=== PATIENT | male | born 1965 | race Caucasian/White ===

== ENCOUNTER 2016-06-18 08:55 | Inpatient (IN) | payer OTHER ==
[~2016-06-18] VITALS: Ht 175.3 cm; Wt 132.4 kg
[~2016-06-18 08:55] MED LIST: ADVIL PM1 CAP PO; ALBUTEROL HFA60 DOSE IN; ALEVE220 MG PO; ASPIRIN EC LOW81 MG PO; CARDIZEM C2 PO; MS CONTIN30 MG PO; O2 IN; OXAYDO5 MG PO; PRILOSEC20 MG PO; ZESTRIL10 MG PO
--- NOTE | 2016-06-18 11:21 | ED ORDER SUMMARY ---
..... Patient: VIRGIL BROCK OrderSheet [facility] VisitID: [id number] [place] [address] 50y, M Registration Date/Time: 06/18/2016 ORDER SHEET Weight: 131.5 kg (stated) Allergies: None GENERAL ORDERS: EKG - ER Stat (09:08 06/18/2016 Librado R.NSherif per protocol) (9:12 LTapper) Chest 2V Urgent (:06/18/2016 Bhaarthi BAKER) (Ack 9:31 LTapper) (10:37 MWinterer R.N.) Last Repairer (Continuous) (:06/18/2016 Bharathi BAKER) (9:31 SReiglesia R.N.) Cardiac Panel Stat (:06/18/2016 Bharathi BAKER) (Ack 9:31 LTapper) (9:32 LTapper) BNP Urgent (:06/18/2016 Bharathi BAKER) (Ack 9:31 LTapper) (9:32 LTapper) UA-Culture if indicated Urgent (:06/18/2016 Bharathi BAKER) (Ack 9:31 LTapper) (10:37 MWinterer R.N.) TSH Urgent (:06/18/2016 Bharathi BAKER) (Ack 9:31 LTapper) (9:32 LTapper) Oxygen (2 L/min) (NC) (:06/18/2016 Bharathi BAKER) (9:31 Librado R.N.) Pulse oximeter (:06/18/2016 Bharathi BAKER) (9:31 Librado R.N.) Old Records (Abdullahi within the lat year for CHF and cardiac work up.) (10:44 06/18/2016 Bharathi BAKER) (Ack 12:00 LTapper) (12:00 LTapper) MEDICATION ORDERS: Aspirin PO 325 mg (NOW) (09:29 06/18/2016 Bharathi BAKER) (Cancelled: Other9:32 Bharathi BAKER) Oxycodone-APAP PO 10/650 mg (NOW) (11:54 06/18/2016 Bharathi BAKER) (Ack 12:02 oberts R.N.) (12:06 Patrizia R.N.) IV FLUIDS: IV Saline Lock (09:29 06/18/2016 Bharathi BAKER) (Ack 9:33 SReitz R.N.) Lasix IV 40 mg (NOW) (10:48 06/18/2016 Bharathi BAKER) (Ack 11:20 SRoberts R.N.) (11:27 SRoberts R.N.) ORDER SHEET NOTES: [Electronically signed by Kamila Rendon R.N. (13:19 06/18/2016)] [Electronically signed by Eulogio White MD (16:20 06/18/2016)] [Electronically locked/signed by Kamila Rendon R.N. (13:19 06/18/2016)]
--- NOTE | 2016-06-18 11:21 | ED NURSING NOTES ---
Clinical Report - Nurses [facility] [address] [place] [address] 06/18/2016 8:57 Patient: VIRGIL BROCK TRIAGE Triage time 0855. Acuity: LEVEL 3. Chief Complaint: CHEST PAIN and SHORTNESS OF BREATH. Alert. No acute distress. SEPSIS SCREEN: Sepsis Screen. Negative (no infection suspected/documented). RICKI COMA SCORE: [place] Coma Scale: 15- eyes open spontaneously (4); best verbal response- oriented x 4 (5); best motor response- obeys commands (6). --09:04 Shira Cason R.N. 09:00 06/18/16. BP: 150/96. HR: 72. RR: 20. O2 saturation: 93%. Temp: 99.1 F. Pain level now 10. --09:04 Shira Cason R.N. Weight: 131.5 kg stated. Height/Length: 69 inches Per Patient. BMI: 42.8. --09:02 Shira Cason R.N. Medications OxyCODONE HCl Oral 15mg, 3x a day (for Arthritis). Toprol XL Oral 50 mg, daily. Zestril Oral 10 mg, daily. --09:06 Shira Cason R.N. MS Contin Oral 15 mg, 2x a day. --09:06 Shira Cason R.N. Lamotrigine 200mg daily. --09:07 Shira Cason R.N. Allergies None. --13:16 Kamila Rendon R.N. The following entry was struck by Shira Cason R.N., 09:07 (06/18/16) Reason - other. <<STRICKEN ENTRY-- None. --09:03 Shira Cason R.N. --END STRIKE>>. History Arrived by private vehicle. Historian: patient. Accompanied by family. Primary physician (Christopher). This started today. 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 PAST MEDICAL HX: Immunizations: up-to-date. SOCIAL HX: Heavy tobacco smoker (cigarette)- less than 1 pack per day. No alcohol use or drug use. No infectious disease exposure. ABUSE ASSESSMENT: Abuse assessment: The patient was asked "Do you feel safe in your home?" and "Has anyone hurt you or threatened to hurt you?". No report of abuse. SELF HARM ASSESSMENT: A self harm assessment was performed. The patient answered "no" to the question "Do you have thoughts of harming or killing yourself?" and "Have you recently had thoughts about harming or killing others?". NUTRITIONAL RISK ASSESSMENT: The nutritional risk assessment revealed no deficiencies. FUNCTIONAL ASSESSMENT: Functional assessment: no impairments noted. LEARNING NEEDS ASSESSMENT: The learning needs assessment revealed no barriers. --09:04 Shira Cason R.N. PROBLEMS: Congestive Heart Failure. Rib Fracture. Crush injury . Contusion. Head Injury. Fall. Hyperlipidemia. Hypertension. Sprain. Pneumonia. --09:03 Shira Cason R.N. ADDITIONAL SURGERIES: Cholecystectomy. Shoulder Surgery. --09:04 Shira Cason R.N. Interventions ID band on patient. Ambulatory. --09:04 Shira Cason R.N. PHYSICAL ASSESSMENT 08:50. Ambulatory to room. GENERAL / NEURO / PSYCH: Alert. Appears in no acute distress. HEENT: Mucous membranes are pink. RESPIRATORY: Respirations not labored. CVS: Pulses within normal limits. Capillary refill less than 2 seconds. GI / : Abdomen soft and nontender. EXTREMITIES: No lower extremity edema. SKIN: Skin is warm and dry. Skin is non-tender. --09:04 Shira Cason R.N. NURSING PROGRESS NOTES 09:00. Oxygen administered by nasal cannula at 2 liters. quality assurance monitor, pulse oximeter and NIBP monitor placed on patient; child monitor- Lead II; monitor alarms on. Patient gowned. Head of bed elevated. Two patient identifiers checked. Call light placed in reach. Side rails up x 2. Bed placed in lowest position. Brakes of bed on. Patient ready for evaluation- chart flagged. --09:05 Shira Cason R.N. 09:00 06/18/2016 Site #1 started via IV in the right antecubital space with an 20g angiocath, with aseptic technique and good blood return; one attempt. Blood drawn: rainbow set. Labeled in the presence of the patient and sent to the lab. Saline lock flushed with 10 mL saline (accessed by EDWIN Dominguez). --09:05 Shira Cason R.N. EKG time: (902). EKG was ordered, performed by a tech and shown to the ED physician. --09:05 Shira Cason R.N. Care transferred and report given (to Kamila Galarza RN). --10:21 Shira Cason R.N. 10:25. Patient ID band checked for patient name and birthdate: patient confirmed. Instructions provided to collect clean catch urine and patient verbalized understanding urine collected with return of robbin-colored clear urine; odor is normal; sample sent to lab for urinalysis. Specimen labeled in the presence of the patient. --10:30 Linda Deborah 11:27 06/18/2016 Lasix IVP 40 mg given over 15 minute(s) via site #1. Allergies verified and confirmed 5 rights. IV patency established. IV site checked: no pain, redness, or swelling. IV flushed thoroughly pre- and post-medication administration. IVP given by RN. --11:27 Kamila Rendon R.N. 12:06 06/18/2016 Oxycodone-APAP (Oxycodone-Acetaminophen) PO 5/325 mg Tablets 2 tab given. Allergies verified, confirmed 5 rights and sedative warning given to the patient and patient's family. --12:06 Kamila Rendon R.N. 12:16 06/18/16. BP: 136/88. HR: 82. RR: 20. O2 saturation: 93% on room air. Pain level now: 12/18. 11:28 06/18/16. BP: 124/76. HR: 59. RR: 20. O2 saturation: 93% on room air. Pain level now: 08/17. 10:38 06/18/16. BP: 138/87. HR: 62. RR: 18. O2 saturation: 94% on room air. 09:00 06/18/16. BP: 150/96. HR: 72. RR: 20. O2 saturation: 93%. Temp: 99.1 F. Pain level now 07/18. --12:19 Kamila Rendon R.N. 12:40 06/18/2016 Site #[address] upon admission; patent, no pain and no signs of infection. Good blood return present. Flushed with 10 mL saline. --13:18 Kamila Rendon R.N. DISPOSITION / DISCHARGE Admitted to Acute Care. Transported via by [employer]. Report was given to a nurse via a phone call. Report included patient's care, treatment, medications, reviewed medication reconcilliation, and condition (including any recent changes or anticipated changes). All questions were answered. Report was acknowledged and care was transferred. Patient's personal items include, Belongings home with the family. Collection of belongings was witnessed by 1 nurse. --12:29 Kamila Rendon R.N. 12:16 06/18/16. BP: 136/88. HR: 82. RR: 20. O2 saturation: 93% on room air. Pain level now: 12/18. 11:28 06/18/16. BP: 124/76. HR: 59. RR: 20. O2 saturation: 93% on room air. Pain level now: 08/17. 10:38 06/18/16. BP: 138/87. HR: 62. RR: 18. O2 saturation: 94% on room air. 09:00 06/18/16. BP: 150/96. HR: 72. RR: 20. O2 saturation: 93%. Temp: 99.1 F. Pain level now 07/18. --12:29 Kamila Rendon R.N. Locked/Released at 06/18/2016 13:19 by Kamila Rendon R.N.
--- NOTE | 2016-06-18 11:21 | ED CLINICAL REPORT ---
Clinical Report - Physicians/Mid Levels [facility] [address] [place] [address] 06/18/2016 8:57 [id number] Time Seen: 09:10 Jun 18 2016. Arrived- By private vehicle. Historian- patient. CPT: ER phys charges level 5 plus (#864991). EKG interpretation (#[id number]). HISTORY OF PRESENT ILLNESS Chief Complaint: DYSPNEA and HISTORY OF CONGESTIVE HEART FAILURE. This started yesterday Dyspnea for 24 hours. and is still present and worsening. (worse. cannot walk 20 feet now without stopping.). The dyspnea is described as moderate and is worsened by exertion and being in a supine position, is improved by rest, is improved with oxygen and is improved with sitting upright. The patient has had a cough, chest discomfort, wheezing, dyspnea on exertion and orthopnea. No sputum production, fever, sweating episodes, chills or calf pain. No foot swelling. Similar symptoms previously: Recent medical care: Not recently seen/assessed. REVIEW OF SYSTEMS The patient has had joint pain (chronically), but not had weight loss. No eye irritation, sore throat, nasal discharge, sinus drainage or nausea. No vomiting, abdominal pain, diarrhea, black stools or fainting episodes. No difficulty with urination or skin rash. 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 Congestive Heart Failure. Rib Fracture. Crush injury . Contusion. Head Injury. Fall. Hyperlipidemia. Hypertension. Sprain. Pneumonia. ADDITIONAL SURGERIES: Cholecystectomy. Shoulder Surgery. Medications: Lamotrigine 200mg daily. MS Contin Oral 15 mg, 2x a day. OxyCODONE HCl Oral 15mg, 3x a day (for Arthritis). Toprol XL Oral 50 mg, daily. Zestril Oral 10 mg, daily. SOCIAL HISTORY Heavy tobacco smoker (cigarette)- less than 1 pack per day. No alcohol use or drug use. ADDITIONAL NOTES The nursing notes have been reviewed. PHYSICAL EXAM Vital Signs: 06/18/2016 09:00 BP: 150/96. HR: 72. RR: 20. O2 saturation: 93%. Temp: 99.1 F. Appearance: Alert. Patient in mild distress. Eyes: Pupils equal, round and reactive to light. Eyes normal inspection. ENT: Ears normal. Nose normal. Pharynx normal. Uvula midline. Neck: Normal inspection. No jugular venous distention. Neck supple. CVS: Normal heart rate and rhythm. Heart sounds normal. Pulses normal. No cardiac murmur. Respiratory: Mild respiratory distress. Moderate chest wall tenderness (Anterior and reproduces the pain complaint.). The tenderness is well-localized. Moderate rales present in the lower two-thirds of both lung kline. No wheezes. Abdomen: Soft and nontender. Back: Normal inspection. Skin: Skin warm. Normal skin color. No rash. Extremities: Extremities exhibit normal ROM. No lower extremity edema. Neuro: Oriented X 3. No motor deficit. No sensory deficit. Reflexes normal. LABS, X-RAYS, AND EKG EKG: Normal sinus rhythm. Normal P waves. Left atrial enlargement. Normal QRS complex. Q waves in lead V1 and V2. Normal axis. Normal ST and T waves. The study has been interpreted contemporaneously. The study has been independently viewed by me. The EKG appears to be a good tracing. Chest X-ray: Congestive heart failure present. Vascular congestion present. Cardiomegaly. Views: PA and lateral. Technique: good. The X-rays were independently viewed by me and interpreted contemporaneously by me. Laboratory Tests: UA-Culture if indicated: (ROBERT: 06/18/2016 10:25) ( MsgRcvd 06/18/2016 10:45) Final results Test Result Flag Units (Reference) URINE COLOR KYRIE URINE APPEARANCE CLEAR URINE GLUCOSE NEGATIVE (NEGATIVE) URINE BILIRUBIN NEGATIVE (NEGATIVE) URINE BILIRUBIN ICTOTEST NEGATIVE (NEGATIVE) URINE KETONE NEGATIVE (NEGATIVE) URINE SPECIFIC GRAVITY 1.015 (1.010-1.030) URINE PH 7.0 (5.0-8.0) URINE PROTEIN 2+ (NEGATIVE) URINE UROBILINOGEN 2.0 EU/dL (0.2-1.0) The urobilinogen reagent area may react with interferingsubstances known to react with Vane's reagent such asp-aminosalicylic acid and sulfonamides. Atypical colorreactions may be obtained in the presence of highconcentrations of p-aminobenzoic acid. The absence ofurobilinogen cannot be determined with this test. URINE NITRITE NEGATIVE (NEGATIVE) URINE BLOOD NEGATIVE (NEGATIVE) URINE LEUK ESTERASE NEGATIVE (NEGATIVE) URINE RBC NONE SEEN rbc/hpf (0-1) URINE WBC 3-5 wbc/hpf (0-1) URINE EPITHELIAL CELLS 1-3 EPI/hpf (0-5) URINE BACTERIA TRACE (<1+) (NONE SEEN) URINE COMMENT CULT NOT INDICATED URINE CULTURES ARE SET-UP BASED ON THE FOLLOWING CRITERIA:POSITIVE NITRITEPOSITIVE LEUKOCYTE ESTERASEGREATER THAN 10 WHITE BLOOD CELLSMODERATE (2+) OR GREATER BACTERIA CBC w Diff: (ROBERT: 06/18/2016 09:00) ( [facility] [place] 06/18/2016 09:39) Final results Test Result Flag Units (Reference) WHITE BLOOD COUNT 9.5 K/uL (4.5-11.5) RED BLOOD COUNT 4.96 M/uL (4.50-5.90) HEMOGLOBIN 15.1 gm/dL (13.5-17.5) HEMATOCRIT 44.9 % (41.0-53.0) MEAN CELL VOLUME 91 fL (80-100) MEAN CORPUSCULAR HGB 30 pg (26-34) MEAN CORPUSCULAR HGB CONC 34 g/dL (31-37) RED CELL DISTRIBUTION WIDTH 14.9 H % (11.6-14.8) PLATELET COUNT 160 K/uL (150-400) NEUTROPHIL % 76.8 H % (50-75) LYMPH % 14.9 L % (25-40) MONO % 6.7 % (3-14) EOSINOPHIL % 1.2 % (0-4) BASOPHIL % 0.4 % (0-2) BNP: (ROBERT: 06/18/2016 09:00) ( MsgRcvd 06/18/2016 09:58) Final results Test Result Flag Units (Reference) B-TYPE NATRIURETIC PEPTIDE 732 H pg/ml (5-100) CHEM 13 PANEL: (ROBERT: 06/18/2016 09:00) ( MsgRcvd 06/18/2016 09:57) Final results Test Result Flag Units (Reference) GLUCOSE 109 mg/dL (70-110) BUN 15 mg/dL (7-18) CREATININE 1.2 mg/dL (0.6-1.3) Estimated GFR >60 mL/min Estimated GFR- >60 mL/min Note: Persistent reduction over 3 months in eGFR<60 mL/min/1.73 m2 defines CKD. Patients with eGFR values>=60 mL/min/1.73 m2 may also have CKD if evidence ofpersistent proteinuria. Additional information may be foundat www.kidney.org. SODIUM 141 mmol/L (136-145) POTASSIUM 4.0 mmol/L (3.5-5.1) CHLORIDE 104 mmol/L (98-107) CARBON DIOXIDE 29 mmol/L (21-32) CALCIUM 9.1 mg/dL (8.5-10.1) TOTAL PROTEIN 7.3 g/dL (6.4-8.2) ALBUMIN 3.5 g/dL (3.3-5.0) BILIRUBIN, TOTAL 1.3 H mg/dL (0.0-1.0) ALKALINE PHOSPHATASE 123 H U/L (46-116) AST (SGOT) 41 H U/L (15-37) ALT (SGPT) 93 H U/L (12-78) MAGNESIUM 2.1 mg/dL (1.8-2.4) CPK 59 U/L (24-260) TROPONIN I <0.05 ng/mL (0.00-1.5) TROPONIN REFERENCE RANGE:<0.1 NEGATIVE0.1-1.5 INDETERMINANT>1.5 POSITIVE THYROID STIMULATING HORMONE 4.475 H uIU/mL (0.34-3.74) . PROGRESS AND PROCEDURES Course of Care: Pt had 325 mg ASA at home. Heplock Lasix 40 mg IV records reviewed from October 2014. Patient was admitted for CHF. A cardiology workup that includeda nuclear exercise treadmil,l an echocardiogram and a CTA of the chest. He was treated medically for CHF and discharged for follow-up. There is no mention of any kind of coronary artery disease. Discussed case with on-call health care provider, (Laila). Reviewed test results. Agreed upon treatment plan. Health care provider will see patient in hospital. Patient/family counseled. Old medical records ordered. Disposition orders written. Disposition: Admitted to Acute Care. CLINICAL IMPRESSION Acute moderate systolic, left ventricular congestive heart failure Acute dyspnea Borderline hypoxia on RA. Chest wall pain Elevated liver enzymes. (Electronically signed by Eulogio White MD 06/18/2016 16:20)
--- NOTE | 2016-06-18 11:21 | ED ORDER SUMMARY ---
..... Patient: VIRGIL BROCK OrderSheet [facility] VisitID: [id number] [place] [address] 50y, M Registration Date/Time: 06/18/2016 ORDER SHEET Weight: 131.5 kg (stated) Allergies: None GENERAL ORDERS: EKG - ER Stat (09:08 06/18/2016 Librado R.NSherif per protocol) (9:12 LTapper) Chest 2V Urgent (:06/18/2016 Bharathi BAKER) (Ack 9:31 LTapper) (10:37 MWinterer R.N.) Celery Stripper (Continuous) (:06/18/2016 Bharathi BAKER) (9:31 SReiglesia R.N.) Cardiac Panel Stat (:06/18/2016 Bharathi BAKER) (Ack 9:31 LTapper) (9:32 LTapper) BNP Urgent (:06/18/2016 Bharathi BAKER) (Ack 9:31 LTapper) (9:32 LTapper) UA-Culture if indicated Urgent (:06/18/2016 Bharathi BAKER) (Ack 9:31 LTapper) (10:37 MWinterer R.N.) TSH Urgent (:06/18/2016 Bharathi BAKER) (Ack 9:31 LTapper) (9:32 LTapper) Oxygen (2 L/min) (NC) (:06/18/2016 Bharathi BAKER) (9:31 Librado R.N.) Pulse oximeter (:06/18/2016 Bharathi BAKER) (9:31 Librado R.N.) Old Records (Abdullahi within the lat year for CHF and cardiac work up.) (10:44 06/18/2016 Bharathi BAKER) (Ack 12:00 LTapper) (12:00 LTapper) MEDICATION ORDERS: Aspirin PO 325 mg (NOW) (09:29 06/18/2016 Bharathi BAKER) (Cancelled: Other9:32 Bharathi BAKER) Oxycodone-APAP PO 10/650 mg (NOW) (11:54 06/18/2016 Bharathi BAKER) (Ack 12:02 oberts R.N.) (12:06 Patrizia R.N.) IV FLUIDS: IV Saline Lock (09:29 06/18/2016 Bharathi BAKER) (Ack 9:33 SReitz R.N.) Lasix IV 40 mg (NOW) (10:48 06/18/2016 Bharathi BAKER) (Ack 11:20 SRoberts R.N.) (11:27 SRoberts R.N.) ORDER SHEET NOTES: [Electronically signed by Kamila Rendon R.N. (13:19 06/18/2016)] [Electronically signed by Eulogio White MD (16:20 06/18/2016)] [Electronically locked/signed by Kamila Rendon R.N. (13:19 06/18/2016)]
--- NOTE | 2016-06-18 11:21 | ED NURSING NOTES ---
Clinical Report - Nurses [facility] [address] [place] [address] 06/18/2016 8:57 Patient: VIRGIL BROCK TRIAGE Triage time 0855. Acuity: LEVEL 3. Chief Complaint: CHEST PAIN and SHORTNESS OF BREATH. Alert. No acute distress. SEPSIS SCREEN: Sepsis Screen. Negative (no infection suspected/documented). RICKI COMA SCORE: [place] Coma Scale: 15- eyes open spontaneously (4); best verbal response- oriented x 4 (5); best motor response- obeys commands (6). --09:04 Shira Cason R.N. 09:00 06/18/16. BP: 150/96. HR: 72. RR: 20. O2 saturation: 93%. Temp: 99.1 F. Pain level now 10. --09:04 Shira Cason R.N. Weight: 131.5 kg stated. Height/Length: 69 inches Per Patient. BMI: 42.8. --09:02 Shira Cason R.N. Medications OxyCODONE HCl Oral 15mg, 3x a day (for Arthritis). Toprol XL Oral 50 mg, daily. Zestril Oral 10 mg, daily. --09:06 Shira Cason R.N. MS Contin Oral 15 mg, 2x a day. --09:06 Shira Cason R.N. Lamotrigine 200mg daily. --09:07 Shira Cason R.N. Allergies None. --13:16 Kamila Rendon R.N. The following entry was struck by Shira Cason R.N., 09:07 (06/18/16) Reason - other. <<STRICKEN ENTRY-- None. --09:03 Shira Cason R.N. --END STRIKE>>. History Arrived by private vehicle. Historian: patient. Accompanied by family. Primary physician (Christopher). This started today. 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 PAST MEDICAL HX: Immunizations: up-to-date. SOCIAL HX: Heavy tobacco smoker (cigarette)- less than 1 pack per day. No alcohol use or drug use. No infectious disease exposure. ABUSE ASSESSMENT: Abuse assessment: The patient was asked "Do you feel safe in your home?" and "Has anyone hurt you or threatened to hurt you?". No report of abuse. SELF HARM ASSESSMENT: A self harm assessment was performed. The patient answered "no" to the question "Do you have thoughts of harming or killing yourself?" and "Have you recently had thoughts about harming or killing others?". NUTRITIONAL RISK ASSESSMENT: The nutritional risk assessment revealed no deficiencies. FUNCTIONAL ASSESSMENT: Functional assessment: no impairments noted. LEARNING NEEDS ASSESSMENT: The learning needs assessment revealed no barriers. --09:04 Shira Cason R.N. PROBLEMS: Congestive Heart Failure. Rib Fracture. Crush injury . Contusion. Head Injury. Fall. Hyperlipidemia. Hypertension. Sprain. Pneumonia. --09:03 Shira Cason R.N. ADDITIONAL SURGERIES: Cholecystectomy. Shoulder Surgery. --09:04 Shira Cason R.N. Interventions ID band on patient. Ambulatory. --09:04 Shira Cason R.N. PHYSICAL ASSESSMENT 08:50. Ambulatory to room. GENERAL / NEURO / PSYCH: Alert. Appears in no acute distress. HEENT: Mucous membranes are pink. RESPIRATORY: Respirations not labored. CVS: Pulses within normal limits. Capillary refill less than 2 seconds. GI / : Abdomen soft and nontender. EXTREMITIES: No lower extremity edema. SKIN: Skin is warm and dry. Skin is non-tender. --09:04 Shira Cason R.N. NURSING PROGRESS NOTES 09:00. Oxygen administered by nasal cannula at 2 liters. media monitor, pulse oximeter and NIBP monitor placed on patient; lunchroom monitor- Lead II; monitor alarms on. Patient gowned. Head of bed elevated. Two patient identifiers checked. Call light placed in reach. Side rails up x 2. Bed placed in lowest position. Brakes of bed on. Patient ready for evaluation- chart flagged. --09:05 Shira Cason R.N. 09:00 06/18/2016 Site #1 started via IV in the right antecubital space with an 20g angiocath, with aseptic technique and good blood return; one attempt. Blood drawn: rainbow set. Labeled in the presence of the patient and sent to the lab. Saline lock flushed with 10 mL saline (accessed by EDWIN Dominguez). --09:05 Shira Cason R.N. EKG time: (902). EKG was ordered, performed by a tech and shown to the ED physician. --09:05 Shira Cason R.N. Care transferred and report given (to Kamila Galarza RN). --10:21 Shira Cason R.N. 10:25. Patient ID band checked for patient name and birthdate: patient confirmed. Instructions provided to collect clean catch urine and patient verbalized understanding urine collected with return of robbin-colored clear urine; odor is normal; sample sent to lab for urinalysis. Specimen labeled in the presence of the patient. --10:30 Linda Deborah 11:27 06/18/2016 Lasix IVP 40 mg given over 15 minute(s) via site #1. Allergies verified and confirmed 5 rights. IV patency established. IV site checked: no pain, redness, or swelling. IV flushed thoroughly pre- and post-medication administration. IVP given by RN. --11:27 Kamila Rendon R.N. 12:06 06/18/2016 Oxycodone-APAP (Oxycodone-Acetaminophen) PO 5/325 mg Tablets 2 tab given. Allergies verified, confirmed 5 rights and sedative warning given to the patient and patient's family. --12:06 Kamila Rendon R.N. 12:16 06/18/16. BP: 136/88. HR: 82. RR: 20. O2 saturation: 93% on room air. Pain level now: 12/18. 11:28 06/18/16. BP: 124/76. HR: 59. RR: 20. O2 saturation: 93% on room air. Pain level now: 08/17. 10:38 06/18/16. BP: 138/87. HR: 62. RR: 18. O2 saturation: 94% on room air. 09:00 06/18/16. BP: 150/96. HR: 72. RR: 20. O2 saturation: 93%. Temp: 99.1 F. Pain level now 07/18. --12:19 Kamila Rendon R.N. 12:40 06/18/2016 Site #[address] upon admission; patent, no pain and no signs of infection. Good blood return present. Flushed with 10 mL saline. --13:18 Kamila Rendon R.N. DISPOSITION / DISCHARGE Admitted to Acute Care. Transported via by [employer]. Report was given to a nurse via a phone call. Report included patient's care, treatment, medications, reviewed medication reconcilliation, and condition (including any recent changes or anticipated changes). All questions were answered. Report was acknowledged and care was transferred. Patient's personal items include, Belongings home with the family. Collection of belongings was witnessed by 1 nurse. --12:29 Kamila Rendon R.N. 12:16 06/18/16. BP: 136/88. HR: 82. RR: 20. O2 saturation: 93% on room air. Pain level now: 12/18. 11:28 06/18/16. BP: 124/76. HR: 59. RR: 20. O2 saturation: 93% on room air. Pain level now: 08/17. 10:38 06/18/16. BP: 138/87. HR: 62. RR: 18. O2 saturation: 94% on room air. 09:00 06/18/16. BP: 150/96. HR: 72. RR: 20. O2 saturation: 93%. Temp: 99.1 F. Pain level now 07/18. --12:29 Kamila Rendon R.N. Locked/Released at 06/18/2016 13:19 by Kamila Rendon R.N.
--- NOTE | 2016-06-18 12:11 | DIAGNOSTIC IMAGING REPORT ---
PROCEDURE: XR CHEST 2 VIEW INDICATION: SHORTNESS OF BREATH, initial encounter TECHNIQUE: PA and lateral view. COMPARISON: Chest x-ray 10/13/2014 FINDINGS: Mild cardiomegaly with pulmonary vascular congestion, interstitial edema, small pleural effusions and mild bibasilar alveolar opacities consistent with pulmonary edema. Bony thorax is unremarkable. IMPRESSION: 1. CHF
[2016-06-18 13:00] VITALS: BP 130/80
[2016-06-18] MEDS ORDERED: LAMOTRIGINE100 MG PO (13:50)
[2016-06-18] MEDS ORDERED: MS CONTIN15 MG PO (13:51)
[2016-06-18] MEDS ORDERED: OXYCODONE HCL E15 MG PO (13:51)
[2016-06-18] MEDS ORDERED: OXYCONTIN C/R20 MG PO (13:52)
[2016-06-18] MEDS ORDERED: LISINOPRIL20 MG PO (14:28)
[2016-06-18 14:37] VITALS: BP 129/79
--- NOTE | 2016-06-18 16:20 | ED MED RECONCILIATION SUMMARY ---
Patient: VIRGIL BROCK Medication Reconciliation Report [facility] VisitID: [id number] [address] [place] [address] 50y, M Registration Date/Time: 06/18/2016 Weight: 131.5 kg Height/Length: 69 in. BMI: 42.8 ALLERGIES: None The patient's Home Medications are listed below: THE FOLLOWING MEDICATIONS NEED TO BE RECONCILED: Lamotrigine 200mg daily MS Contin Oral 15 mg, 2x a day OxyCODONE HCl Oral 15mg, 3x a day, for Arthritis Toprol XL Oral 50 mg, daily Zestril Oral 10 mg, daily The source(s) of the original Home Medication information: Not obtained. The following Medications were given to the patient in the Emergency Department: Lasix [IVP] IVP 40 mg, administered: 06/18/2016 11:27:00 AM Oxycodone-APAP [PO] PO 2 tab, administered: 06/18/2016 12:06:00 PM The following Medications were prescribed to the patient: None.
--- NOTE | 2016-06-18 16:20 | ED MAR SUMMARY ---
..... Medication Administration Record Formerly [facility] [address] [place] [address] Patient: VIRGIL BROCK Visit ID: [id number] 50y, M Weight: 131.5 kg Height/Length: 69 in BMI: 42.8 ALLERGIES: None Given 11:27 06/18/2016 Kamila Rendon R.N. Medication Administered: LASIX [IVP], Dose: 40 mg IVP over 15 minute(s), Site: #1 right . Medication Ordered: Lasix IV 40 mg (NOW). Given 12:06 06/18/2016 Kamila Rendon R.N. Medication Administered: OXYCODONE-APAP [PO] (OXYCODONE-ACETAMINOPHEN), Dose: 2 tab 5/325 mg Tablets PO. Medication Ordered: Oxycodone-APAP PO 10/650 mg (NOW).
--- NOTE | 2016-06-18 16:20 | ED MED RECONCILIATION SUMMARY ---
Patient: VIRGIL BROCK Medication Reconciliation Report [facility] VisitID: [id number] [address] [place] [address] 50y, M Registration Date/Time: 06/18/2016 Weight: 131.5 kg Height/Length: 69 in. BMI: 42.8 ALLERGIES: None The patient's Home Medications are listed below: THE FOLLOWING MEDICATIONS NEED TO BE RECONCILED: Lamotrigine 200mg daily MS Contin Oral 15 mg, 2x a day OxyCODONE HCl Oral 15mg, 3x a day, for Arthritis Toprol XL Oral 50 mg, daily Zestril Oral 10 mg, daily The source(s) of the original Home Medication information: Not obtained. The following Medications were given to the patient in the Emergency Department: Lasix [IVP] IVP 40 mg, administered: 06/18/2016 11:27:00 AM Oxycodone-APAP [PO] PO 2 tab, administered: 06/18/2016 12:06:00 PM The following Medications were prescribed to the patient: None.
--- NOTE | 2016-06-18 16:20 | ED MAR SUMMARY ---
..... Medication Administration Record [facility] [address] [place] [address] Patient: VIRGIL BROCK Visit ID: [id number] 50y, M Weight: 131.5 kg Height/Length: 69 in BMI: 42.8 ALLERGIES: None Given 11:27 06/18/2016 Kamila Rendon R.N. Medication Administered: LASIX [IVP], Dose: 40 mg IVP over 15 minute(s), Site: #1 right . Medication Ordered: Lasix IV 40 mg (NOW). Given 12:06 06/18/2016 Kamila Rendon R.N. Medication Administered: OXYCODONE-APAP [PO] (OXYCODONE-ACETAMINOPHEN), Dose: 2 tab 5/325 mg Tablets PO. Medication Ordered: Oxycodone-APAP PO 10/650 mg (NOW).
--- NOTE | 2016-06-18 16:20 | ED DISCHARGE INSTRUCTIONS ---
Patient: VIRGIL BROCK General Instructions [facility] VisitID: [id number] [place] [address] 50y, M Registration Date/Time: 06/18/2016 Acute moderate systolic, left ventricular congestive heart failure Acute dyspnea Borderline hypoxia on RA. Chest wall pain Elevated liver enzymes. ADDITIONAL INFORMATION Dyspnea (Shortness Of Breath) Shortness of Breath (also known as "Dyspnea") is the sense that you can't catch your breath or can't get enough air. Dyspnea can be caused by many different conditions such as: Acute asthma attack Worsening of emphysema (also called "COPD") -- a lung diseasethat is caused by smoking A mucus plug blocks a large air passage in the lung -- this can occur with emphysema or chronic bronchitis Congestive Heart Failure ("CHF") -- when a weak heart muscle allows excess fluid to collect inthe lungs Panic attacks, anxiety -- fear can cause rapid breathing ("hyperventilation") Pneumonia -- infection in the lung tissue Exposure to toxic fumes or smoke Pulmonary embolus (blood clot to the lung) Based on your visit today, the exact cause of your shortness of breath is not certain. Your tests do not show any of the serious causes of dyspnea. Sometimes, further testing is needed to find out if a serious problem exists. Therefore, it is important for you to watch for any new symptoms or worsening of your condition and follow up with your doctor as directed. Home Care: When your symptoms are better, resume your usual activities. If you smoke, you need to stop. Join a stop-smoking program or ask your doctor for help. Follow Up with your doctor or as advised by our staff. Get Prompt Medical Attention if any of the following occur: Increasing shortness of breath or wheezing Redness, pain or swelling in one leg Swelling in both legs or ankles Unexpected weight gain Chest, arm, shoulder, neck or upper back pain Dizziness, weakness or fainting Palpitations (the sense that your heart is fluttering, beating fast or hard) Fever of 100.4F (38C) or higher, or as directed by your healthcare provider Cough with dark colored or bloody sputum (mucus) Heart Failure (Left Or Right Sided) The heart is a large muscle that pumps blood throughout the body. Blood carries oxygen to all the organs, muscles, and skin of your body. After the body takes the oxygen out of the blood, the blood returns to the heart. The right side of the heart collects that blood and pumps it to the lungs to receive fresh oxygen. This oxygen-rich blood from the lungs then returns to the left side of the heart where it is pumped back out to the rest of the body, starting the process all over. Heart Failure (HF) occurs when the heart muscle is weakened. This affects the pumping action of the heart. When the right side of the heart is weakened, it cant handle the blood it is receiving from the rest of the body. This blood returns to the heart through veins. When too much pressure builds up in the veins fluid leaks out into the tissues. [place] then causes that fluid to spread to those parts of the body that are the lowest. Therefore, one of the first symptoms of HF include swelling in the feet and ankles. If the condition worsens, the swelling can even go up past the knees. When the left side of the heart is weakened, it cant handle the blood it is receiving from the lungs. Pressure then builds up in the veins of the lungs, causing fluid to leakinto the lung tissues. This may be referred to as congestive heart failure.This causes you to feel short of breath, weak, or dizzy. These symptoms are often worse with exertion, such as climbing stairs or walking up hills. Lying flat is uncomfortable and can make your breathing worse. This may make sleeping difficult and force you to useextra pillows to sleep well. This condition may not only affect the right side of the heart or only the left side. While it may have started on one side, it often affects both sides. Causes of heart failure Coronary artery disease Prior heart attack (also known as acute myocardial infarction, or AMI) High blood pressure Damaged heart valve Diabetes Obesity Cigarette smoking Alcohol abuse Treatment Heart failure is a chronic condition. There is no cure. The purpose of medical treatment is to improve the pumping action of the heart, and remove excess water from the body. A number of medications can help achieve this goal,improvesymptoms and prevent the heart from becoming weaker. Another major goal is to better treat the caues of heart failure, such as diabetes, high blood pressure, and your lifestyle. Home care Check your weight every day. A sudden increase in weight gain could mean worsening heart failure. Use the same scale every day Weigh yourself at the same time every day Make sure the scale is on the floor, not on a rug Keep a record of your weight every day, so your doctor can see it. If you are not given a log sheet for this, keep a separate journal for this purpose. Reduce your salt (sodium) intake. Avoid high-salt foods (olives, pickles, smoked meats, salted potato chips, etc.). Do not add salt to your food at the table and use only small amounts of salt when cooking. Follow your doctors recommendations about how much fluid intake is safe. Stop smoking. Reduce alcohol use. Lose weight if you are overweight. The excess weight adds a lot of stress on the workload of the heart. Stay active. Talk to your doctor about an exercise program that is safe for your heart. Keep your feet elevated to reduce swelling. Ask your doctor about support hose as a preventive treatment for daytime leg swelling. Besides taking your medicine as instructed, an important part of treatment includes lifestyle changes such as diet, physical activity, stopping smoking, and weight control. Improve your diet. Often in the hospital, people are given a "heart healthy diet." This includes more fresh foods, lower fat, less processed foots, and lower salt. Follow-up care Follow up with your doctor as directed by our staff. Make sure to keep any appointments that were made for you as this can help better control heart failure. If an X-ray was done, you will be notified of any new findings that may affect your care. Call 911 Call 911 if you: Become severely short of breath Feel lightheaded, or feel like you might pass out or faint Have chest pain or discomfort that is different than usual, the medicines your doctor told you to use for this do not help, or the pain lasts longer than 10 to 15 minutes Suddendly develop a rapid heart rate When to seek medical care Get prompt medical attention if you have any of the following signs of worsening heart failure: Sudden weight gain (3or more pounds in one day or5or more pounds in one week) Trouble breathing not related to being active New or increased swelling of your legs or ankles Swelling or pain in your abdomen Breathing trouble at night (waking up short of breath, needing more pillows to breathe) Frequent coughing that doesnt go away Feeling much more tired than usual Heart Failure - Left-Sided The heart is a large muscle that pumps blood throughout the body. Blood carries oxygen to all the organs, muscles, and skin of your body. After the body takes the oxygen out of the blood, the blood returns to the heart. The right side of the heart collects that blood and pumps it to the lungs to receive fresh oxygen. This oxygen-rich blood from the lungs then returns to the left side of the heart where it is pumped back out to the rest of the body, starting the process all over. Heart Failure (HF) occurs when the heart muscle is weakened. This affects the pumping action of the heart. When the left side of the heart is weakened, it cant handle the blood it is receiving from the lungs. Pressure then builds up in the veins of the lungs, causing fluid to leakinto the lung tissues. This may be referred to as congestive heart failure.This causes you to feel short of breath, weak, or dizzy. These symptoms are often worse with exertion, such as climbing stairs or walking up hills. Lying flat is uncomfortable and can make your breathing worse. This may make sleeping difficult and force you to useextra pillows to sleep well. Causes of heart failure Coronary artery disease Prior heart attack (also known as acute myocardial infarction, or AMI) High blood pressure Damaged heart valve Diabetes Obesity Cigarette smoking Alcohol abuse Treatment Heart failure is a chronic condition. There is no cure. The purpose of medical treatment is to improve the pumping action of the heart, and remove excess water from the body. A number of medications can help achieve this goal,improvesymptoms and prevent the heart from becoming weaker. Another major goal is to better treat the caues of heart failure, such as diabetes, high blood pressure, and your lifestyle. Home care Check your weight every day. A sudden increase in weight gain could mean worsening heart failure. Use the same scale every day Weigh yourself at the same time every day Make sure the scale is on the floor, not on a rug Keep a record of your weight every day, so your doctor can see it. If you are not given a log sheet for this, keep a separate journal for this purpose. Reduce your salt (sodium) intake. Avoid high-salt foods (olives, pickles, smoked meats, salted potato chips, etc.). Do not add salt to your food at the table and use only small amounts of salt when cooking. Follow your doctors recommendations about how much fluid intake is safe. Stop smoking. Reduce alcohol use. Lose weight if you are overweight. The excess weight adds a lot of stress on the workload of the heart. Stay active. Talk to your doctor about an exercise program that is safe for your heart. Keep your feet elevated to reduce swelling. Ask your doctor about support hose as a preventive treatment for daytime leg swelling. Besides taking your medicine as instructed, an important part of treatment includes lifestyle changes such as diet, physical activity, stopping smoking, and weight control. Improve your diet. Often in the hospital, people are given a "heart healthy diet." This includes more fresh foods, lower fat, less processed foots, and lower salt. Follow-up care Follow up with your doctor as directed by our staff. Make sure to keep any appointments that were made for you as this can help better control heart failure. If an X-ray was done, you will be notified of any new findings that may affect your care. Call 911 Call 911 if you: Become severely short of breath Feel lightheaded, or feel like you might pass out or faint Have chest pain or discomfort whic is different than usual, the medicines your doctor told you to use for this do not help, or the pain lasts longer than 10 to 15 minutes Suddendly develop a rapid heart rate When to seek medical care Get prompt medical attention if you have any of the following signs of worsening heart failure: Sudden weight gain (more than 2 pounds in 1 day or 5 pounds in 1 week, or whatever weight gain you were told to report by your doctor) Trouble breathing not related to being active New or increased swelling of your legs or ankles Swelling or pain in your abdomen Breathing trouble at night (waking up short of breath, needing more pillows to breathe) Frequent coughing that doesnt go away Feeling much more tired than usual You have been given the following additional information: Dyspnea Heart Failure, General Heart Failure, Left-Sided (Electronically signed by Eulogio White MD 06/18/2016 16:20)
[2016-06-18 18:26] VITALS: BP 131/85
[2016-06-18 23:22] VITALS: BP 128/70
--- NOTE | 2016-06-19 00:13 | HISTORY AND PHYSICAL ---
ADMITTED: 06/18/2016 CHIEF COMPLAINT: 1. Shortness of breath since yesterday 2. Chest tightness since yesterday HISTORY OF PRESENT ILLNESS: This is a 50-year-old male with history of an episode of congestive heart failure, although he states that he does not consistently have heart failure nor is he on chronic diuretics, who over the last 24 hours has had sudden onset of shortness of breath and chest tightness that has progressively gotten worse or, at the very least, not improved. The patient states that the shortness of breath is worse when he gets up and walks around. He also has a very slight headache, but denies any blurry vision, cold symptoms; however, he does have a cough that does produce some productive sputum. He denies any palpitations or racing heart. No nausea, vomiting, diarrhea, constipation, or abdominal pain. No pain or burning with urination. No muscle aches, joint aches, other than what he usually has with his arthritis. No bloody noses or easy bruising. MEDICAL/SURGICAL HISTORY: Past medical history: 1. An episode of CHF. 2. Hypertension. 3. Dyslipidemia. 4. Rheumatoid arthritis. 5. Osteoarthritis. 6. DJD. 7. Bipolar disorder. Past surgical history: 1. Cholecystectomy. 2. Bilateral arthroscopy with rotator cuff repair on the right and open rotator cuff repair on the left. MEDICATIONS: 1. MS Contin 20 mg p.o. b.i.d. 2. Oxycodone 15 mg p.o. t.i.d. 3. Lisinopril 20 mg p.o. at bedtime. 4. Aspirin 81 mg p.o. daily. 5. Morphine 15 mg p.o. every midday. 6. Lamotrigine 200 mg p.o. daily. These medications were confirmed with the [facility] in [place]. ALLERGIES: 1. NO KNOWN DRUG ALLERGIES. SOCIAL HISTORY: The patient lives with his and 3 children. They have 3 cats and a fish. He smokes approximately 3/4 of a pack per day and has for the last 20 years. He drinks 1 adult beverage, usually liquor, about 1 time monthly. However, denies any recreational drug use. FAMILY HISTORY: Father with a stroke. Mother with ovarian and lung cancer, and she was a smoker. REVIEW OF SYSTEMS: A full 12-point review of systems was done and was negative except as per HPI. PHYSICAL EXAMINATION: VITAL SIGNS: Blood pressure is 129/79, pulse is 55, respiratory rate of 20, O2 saturation is 97% on room air, T-max is 36.8 degrees Celsius. O2 saturation is 96% on 3 liters of oxygen. GENERAL: This is a well-appearing male lying in bed in no apparent distress. HEENT: Head is atraumatic, normocephalic. Pupils are equal, round, and reactive to light with accommodation bilaterally. Extraocular muscles are intact bilaterally. Oropharynx is nonerythematous and moist. NECK: Trachea is midline. There is very minimal JVD. HEART: S1, S2, regular rate and rhythm. No S3, S4, gallops, or rubs. There is a 2/6 systolic murmur increased at the base. LUNGS: Very minimal crackles in bilateral lower kline. ABDOMEN: Soft, nontender, nondistended without hepatosplenomegaly or masses. Bowel sounds are active. EXTREMITIES: There is trace bilateral lower extremity edema. LAB/IMAGING: Sodium 141, potassium 4, chloride 104, bicarbonate 29, BUN of 15, creatinine of 1.2, glucose of 109. CPK of 59, troponin is less than 0.05. Magnesium 2.1, calcium 9.1, total protein is 7.3, albumin of 3.5. Total bilirubin of 1.3, alkaline phosphatase of 12, AST 41, ALT of 93. TSH of 4.475. BNP of 732. Other studies: Chest x-ray shows cardiomegaly. There is pulmonary vascular congestion with interstitial edema and small pleural effusions. IMPRESSION: This is a 50-year-old male with this questionable previous episode of congestive heart failure, but no ongoing congestive heart failure, per the patient, presenting with shortness of breath and chest tightness consistent with acute congestive heart failure exacerbation. PLAN: 1. Fluids, electrolytes, and nutrition: The patient will be put on a cardiac diet. 2. Cardiac: I cannot find any cardiac echocardiogram and the patient denies ever having one. The patient will likely be here until Monday and we will do a cardiac echocardiogram at that time. The patient will receive diuretic while an inpatient to improve his acute congestive heart failure exacerbation. He will need to be started on metoprolol before discharge. I have already started him on an aspirin a day. He is already on lisinopril. 3. Endocrine: The patient has a slightly elevated TSH and I have added on a free T3 and T4 to further evaluate. 4. Rheumatologic: Rheumatoid arthritis. The patient is not on any control medications, but is on high-dose narcotics. One would suggest that this patient see a finance effectiveness manager and consider taking rheumatoid arthritis controller medication. 5. Psychiatric: The patient has bipolar disorder. Will consider continuing his Lamictal. 6. Prophylaxis: The patient is eating and will start Lovenox for deep venous thrombosis prophylaxis. 7. CODE STATUS: FULL CODE.
[2016-06-19 05:36] VITALS: BP 102/67
[2016-06-19 06:32] VITALS: BP 121/79
[2016-06-19 10:37] VITALS: BP 115/69
[2016-06-19 14:19] VITALS: BP 108/57
--- NOTE | 2016-06-19 17:57 | Progress Note ---
Subjective General Feels much improved today. Up walking around the hallway withOUT SOB and no decreased O2 sat. Denies chest pain. No nausea, vomitting, diarrhea, constipation. No abd pain. Physical Exam Vital Signs / I&Os Vital Signs Date Time Temp Pulse Resp B/P Pulse O2 O2 Flow FiO2 Ox Delivery Rate 06/19 1630 Room Air 06/19 1419 36.7 59 16 108/57 95 Room Air 06/19 1326 18 93 Room Air 0.0 06/19 1110 57 06/19 1037 36.7 115 18 115/69 97 Nasal 2.0 Cannula 06/19 0930 2.0 06/19 0842 Nasal 2.0 Cannula 06/19 0632 36.6 56 18 121/79 95 Nasal 2.0 Cannula 06/19 0536 36.6 52 20 102/67 94 Nasal 2.0 Cannula 06/19 0100 Nasal 2.0 Cannula 06/18 2322 36.7 59 20 128/70 95 Nasal 2.0 Cannula 06/18 1826 36.3 59 20 131/85 97 Room Air 2.0 I&O 06/19 0000 06/18 1600 06/18 0800 Intake Total 1000 125 Output Total 1999 0 Balance -1000 125 General Appearance Alert, Cooperative, No acute distress Lungs Clear to auscultation, Normal air movement Cardiovascular Regular rate and rhythm, Normal S1 and S2, 2/6 systolic murmur increased at base. Abdomen Normal bowel sounds, Soft, No tenderness Extremities Trace bilateral LE edema. Assessment and Plan Problem List 1. Acute CHF (congestive heart failure) Plan resolving. will get cardiac echo in am. will need to be started on beta- chapo before discharge. 2. Nicotine dependence Status Chronic Onset Date Unknown Plan Stable. 3. Rheumatoid arthritis Plan Chronic pain. Stable on meds.
[2016-06-19 18:50] VITALS: BP 137/85
[2016-06-19 22:36] VITALS: BP 143/86
[2016-06-20 02:11] VITALS: BP 132/80
[2016-06-20 06:27] VITALS: BP 140/86
[2016-06-20 15:10] VITALS: BP 128/58
[2016-06-20] MEDS ORDERED: FUROSEMIDE20 MG PO (18:13)
[2016-06-20] MEDS ORDERED: ASPIRIN EC LOW81 MG PO (18:13)
[2016-06-20] MEDS ORDERED: LOPRESSOR25 MG PO (18:14)
--- NOTE | 2016-06-20 18:15 | Provider's Discharge Care Plan ---
Problem, Goal, Plan Problem List 1. Hypertension 2. Hypoxia 3. Acute CHF (congestive heart failure)
--- NOTE | 2016-06-20 18:15 | Provider's Discharge Care Plan ---
Problem, Goal, Plan Problem List 1. Hypertension 2. Hypoxia 3. Acute CHF (congestive heart failure)
--- NOTE | 2016-06-20 18:16 | Provider's Discharge Care Plan ---
Problem, Goal, Plan Problem List 1. Hypertension Instructions: Take meds as directed, - do not take more than 3000 mg of sodium daily 2. Acute CHF (congestive heart failure) Instructions: Take meds as directed, - do not ingest more than 2 liters of fluid a day 3. Hypoxia Instructions: Increase activity level, Take meds as directed
--- NOTE | 2016-06-20 18:19 | Progress Note ---
Subjective General Pt seen and examined, patient doing much better than before. Will discharge today on diuretics. Constitutional Denies: Fever, Chills, Sweats, Weakness, Malaise, Other. Respiratory Denies: Cough, Dry, SOB w/exertion, Wheezing, Hemoptysis, Pleuritic Pain, Sputum , Other. Cardiovascular Denies: Chest Pain, Palpitations, Orthopnea, PND, Edema, Light-headedness, Other. Gastrointestinal Denies: Nausea, Vomiting, Abdominal Pain, Diarrhea, Constipation, Melena, Hematochezia, Other. Genitourinary Denies: Dysuria, Frequency, Incontinence, Hematuria, Retention, Other. Musculoskeletal Denies: Neck Pain, Shoulder Pain, Arm Pain, Back Pain, Hand Pain, Leg Pain, Foot Pain, Other. Neurological Denies: Weakness, Numbness, Incoordination, Change in speech, Confusion, Seizures, Other. Physical Exam Vital Signs / I&Os Vital Signs Date Time Temp Pulse Resp B/P Pulse O2 O2 Flow FiO2 Ox Delivery Rate 06/20 1510 98.2 67 18 128/58 94 06/20 0627 98.1 64 20 140/86 95 Room Air 06/20 0211 98.4 61 18 132/80 96 Room Air 0.0 06/19 2236 99.1 67 18 143/86 93 Room Air 06/19 1850 98.2 66 16 137/85 95 Room Air I&O 06/19 0800 06/19 1600 06/20 0000 Intake Total 300 480 640 Output Total 1100 1360 2025 Balance -800 -880 -1385 General Appearance Alert, Oriented X3, No acute distress Lungs Clear to auscultation, Normal air movement Cardiovascular Regular rate and rhythm, No murmurs, gallops, rubs Abdomen Soft, No tenderness Extremities No clubbing, No edema, Normal pulses, No tenderness, Strength = upper ext's, Strength = lower ext's Neurological Normal speech, Normal tone, Sensation intact, Reflexes 2+ and equal , Cranial nerves intact, Strength 5/5 x4 ext's, No lateralizing signs LAB Results Laboratory Tests 06/20 0540 Chemistry Plasma Sodium (136 - 145 mmol/L) 141 Plasma Potassium (3.5 - 5.1 mmol/L) 4.2 Plasma Chloride (98 - 107 mmol/L) 104 CO2 (Enzymatic) (21 - 32 mmol/L) 29 BUN (7 - 18 mg/dL) 18 Creatinine (0.6 - 1.3 mg/dL) 1.1 Est GFR ( Amer) (mL/min) >60 Est GFR (Non-Af Amer) (mL/min) >60 Glucose (70 - 110 mg/dL) 87 Plasma Calcium (8.5 - 10.1 mg/dL) 8.3 Hematology WBC (4.5 - 11.5 K/uL) 7.2 RBC (4.50 - 5.90 M/uL) 4.97 Hgb (13.5 - 17.5 gm/dL) 15.1 Hct (41.0 - 53.0 %) 45.3 MCV (80 - 100 fL) 91 MCH (26 - 34 pg) 30 RDW (11.6 - 14.8 %) 15.2 Neut % (Auto) (50 - 75 %) 58.7 Lymph % (Auto) (25 - 40 %) 26.8 [place] % (Auto) (3 - 14 %) 9.3 Eos % (Auto) (0 - 4 %) 5.0 Baso % (Auto) (0 - 2 %) 0.2 Plt Count, EDTA (150 - 400 K/uL) 149 PUBS MCHC (31 - 37 g/dL) 33 Assessment and Plan Problem List 1. Acute CHF (congestive heart failure) Plan - will obtain echo today - will maintain on lisinopril, add metoprolol - will monitor bp - adequate diuresis during this stay, over 3 liters were removed 2. Hypertension Status Chronic Onset Date Unknown Plan - cw medications - pts bp has been appropriate 3. Hypoxia Plan - resolved - secondary to fluid overload secondary to chf - adequately diuresed 3 liters
--- NOTE | 2016-06-21 08:49 | DIAGNOSTIC IMAGING REPORT ---
REFERRING PHYSICIAN/PROVIDER: Eva Barton MD CONSULTING CARDIAC EXERCISE SPECIALIST: Amor Caro MD PROCEDURE: M-mode 2D echocardiography with spectral and color flow Doppler TECHNICAL QUALITY: Fair INDICATION: CHF RHYTHM DURING PROCEDURE: Sinus rhythm INTERPRETATIONS: LEFT VENTRICLE: Left ventricle is normal size wall thickness and systolic function without any focal wall motion abnormalities. The ejection fraction is estimated at 55%. There is normal diastolic function noted. RIGHT VENTRICLE: The right ventricle is normal in size and function. ATRIA: Both atria are normal in size. The interatrial as septum appears intact and no obvious evidence for an ASD a PFO. MITRAL VALVE: Mitral valve is grossly normal. There is trace mitral regurgitation noted. AORTIC VALVE: Aortic valve appears trileaflet. The aortic valve opens well. There is no evidence of any aortic stenosis or aortic regurgitation noted. TRICUSPID VALVE: The tricuspid valve leaflets are thin and pliable. There is trace tricuspid regurgitation noted. The estimated right ventricular systolic pressure is 47 mmHg. PULMONIC VALVE: Pulmonic valve is not well visualized. There is trace pulmonic regurgitation noted. GREAT VESSELS: The aortic root is normal in size. PERICARDIUM: There is a trivial pericardial effusion noted. IMPRESSION: 1. Normal biventricular size and systolic function 2. Normal biatrial size 3. No significant valvular abnormalities 4. Moderately increased right ventricular systolic pressure (RVSP = 47 mmHg)
== END 2016-06-20 19:00 | disposition home or self-care (01) | DRG 293 ==
LOC: ED SRH 08:55 → TRANS SRH 11:21 → ACUTE2 SRH 11:21
PROVIDERS: ADMIT Emergency Medicine
DX: I11.0 Hypertensive heart disease with heart failure (principal); I50.9 Heart failure, unspecified; R09.02 Hypoxemia; F17.210 Nicotine dependence, cigarettes, uncomplicated; E78.5 Hyperlipidemia, unspecified; M06.9 Rheumatoid arthritis, unspecified; F31.9 Bipolar disorder, unspecified
CPT/HCPCS: 90004; 90047; 90074; 90100; 90616; 90648; 91023; 91320; 92610; 92690; 92720; 92760; 92761; 92762; 92763; 92764; 92765; 92766; 92767; 93140; 95059

== ENCOUNTER 2016-09-08 03:13 | Observation (INO) | payer OTHER ==
[~2016-09-08] VITALS: Ht 175.3 cm; Wt 132.9 kg
[~2016-09-08 03:13] MED LIST changes: +FUROSEMIDE20 MG PO; +LAMOTRIGINE100 MG PO; +LISINOPRIL20 MG PO; +LOPRESSOR25 MG PO; +MS CONTIN15 MG PO; +OXYCODONE HCL E15 MG PO; +OXYCONTIN C/R20 MG PO
--- NOTE | 2016-09-08 04:05 | ED CLINICAL REPORT ---
Clinical Report - Physicians/Mid Levels [facility] [address] [place] [address] 09/08/2016 3:13 Patient: SANJU BROCK Time Seen: 03:18. Arrived- By private vehicle. Historian- patient. HISTORY OF PRESENT ILLNESS Chief Complaint: DYSPNEA and HISTORY OF CONGESTIVE HEART FAILURE. This started several days ago and is still present and now worse. It was gradual in onset and has been constant. The dyspnea is severe. The patient complains of severe, pressure-like chest pain (since earlier tonight), currently moderate. No calf pain. He has had mild right and left foot swelling. He has had orthopnea. (he did not take his Lasix for several days). REVIEW OF SYSTEMS No chills, fever, sweats, calf pain or cough. No palpitations, abdominal pain, constipation, diarrhea or nausea. No vomiting or urinary problems. He has had pedal edema. He says that he had a stress test at [place] about 2 years ago. All systems otherwise negative, except as recorded above. PAST HISTORY PCP - JAVIER HOPPER Problems: Dyspnea. Congestive Heart Failure. Rib Fracture. Crush injury . Contusion. Head Injury. Fall. Hyperlipidemia. Hypertension. Sprain. Pneumonia. Additional Surgeries: Cholecystectomy. Shoulder Surgery. Medications: OxyCONTIN Oral 30mg, 2x a day. LaMICtal Oral (Tablet 200 mg) 1 tablet. Lasix Oral (Tablet 20 mg) 1 tablet, daily. Aspirin Oral (Tablet 81 mg) 1 tablet, daily. OxyCODONE HCl Oral 15mg, 3x a day (for Arthritis). Toprol XL Oral 25 mg, daily. Allergies: None. SOCIAL HISTORY Current every day heavy tobacco smoker (cigarette)- less than 1 pack per day. Occasional alcohol use. No drug use. FAMILY HISTORY Heart disease in first-degree relative (mother). ADDITIONAL NOTES The nursing notes have been reviewed. PHYSICAL EXAM Vital Signs: 09/08/2016 03:17 BP: 196/87. HR: 95. RR: 20. O2 saturation: 82%. Temp: 98.7 F. Pain level now: 6/10. Have been reviewed. Appearance: Alert. Eyes: Pupils equal, round and reactive to light. ENT: Pharynx normal. CVS: Normal heart rate and rhythm. Heart sounds normal. Respiratory: Decreased air movement. (wet breath sounds). Abdomen: Soft and nontender. No organomegaly. Obese. Back: Normal inspection. Skin: Skin warm and dry. Normal skin color. Normal skin turgor. Extremities: Bilateral 1+ pitting edema of the lower extremities involving both feet, both ankles and both lower legs. No calf tenderness. LABS, X-RAYS, AND EKG EKG: Rate: 92. Q waves in lead V1, V2 and V3. EKG unchanged when compared with prior EKG. (18 June 2016). Chest X-ray: Congestive heart failure present. Pulmonary edema present. Vascular congestion present. Cardiomegaly. The X-rays were independently viewed by me. Laboratory Tests: UA-Culture if indicated: (ROBERT: 09/08/2016 03:29) ( [facility] 09/08/2016 03:46) Final results Test Result Flag Units (Reference) URINE COLOR YELLOW URINE APPEARANCE CLEAR URINE GLUCOSE NEGATIVE (NEGATIVE) URINE BILIRUBIN NEGATIVE (NEGATIVE) URINE KETONE NEGATIVE (NEGATIVE) URINE SPECIFIC GRAVITY <= 1.005 L (1.010-1.030) URINE PH 6.5 (5.0-8.0) URINE PROTEIN NEGATIVE (NEGATIVE) URINE UROBILINOGEN 0.2 EU/dL (0.2-1.0) URINE NITRITE NEGATIVE (NEGATIVE) URINE BLOOD NEGATIVE (NEGATIVE) URINE LEUK ESTERASE NEGATIVE (NEGATIVE) URINE RBC 0-1 rbc/hpf (0-1) URINE WBC 0-1 wbc/hpf (0-1) URINE EPITHELIAL CELLS 0-1 EPI/hpf (0-5) URINE BACTERIA NONE SEEN (NONE SEEN) URINE COMMENT CULT NOT INDICATED URINE CULTURES ARE SET-UP BASED ON THE FOLLOWING CRITERIA:POSITIVE NITRITEPOSITIVE LEUKOCYTE ESTERASEGREATER THAN 10 WHITE BLOOD CELLSMODERATE (2+) OR GREATER BACTERIA CBC w Diff: (ROBERT: 09/08/2016 03:23) ( [facility] 09/08/2016 03:27) Final results Test Result Flag Units (Reference) WHITE BLOOD COUNT 11.4 K/uL (4.5-11.5) RED BLOOD COUNT 5.11 M/uL (4.50-5.90) HEMOGLOBIN 15.2 gm/dL (13.5-17.5) HEMATOCRIT 46.7 % (41.0-53.0) MEAN CELL VOLUME 92 fL (80-100) MEAN CORPUSCULAR HGB 30 pg (26-34) MEAN CORPUSCULAR HGB CONC 33 g/dL (31-37) RED CELL DISTRIBUTION WIDTH 15.8 H % (11.6-14.8) PLATELET COUNT 153 K/uL (150-400) NEUTROPHIL % 74.5 % (50-75) LYMPH % 18.5 L % (25-40) MONO % 4.7 % (3-14) EOSINOPHIL % 2.0 % (0-4) BASOPHIL % 0.3 % (0-2) PT with INR: (ROBERT: 09/08/2016 03:23) ( [facility] 09/08/2016 03:36) Final results Test Result Flag Units (Reference) INR 0.9 (0.8-1.2) Low Intensity Therapy: INR 1.5-2.0 PT range 18.5-23.1Mod.Intensity Therapy: INR 2.0-3.0 PT range 23.1-31.5High Intensity Therapy: INR 2.5-3.5 PT range 27.4-35.5High Intensity Therapy 2: INR 3.0-4.0 PT range 31.5-39.3 APTT 28 SECONDS (24-34) D-DIMER QUANTITATIVE 0.49 ug/mLFEU (0.27-0.52) The primary value of this quantitative assay relates toits negative predictive value (i.e. exclusion) of pulmonaryembolism/deep vein thrombosis/DIC.Elevated levels of d-dimer may also occur with:, age, cancer, inflammation, liver disease,post-op, infection, hematoma, coronary disease, peripheralarteriopathy, bleeding disorders and thrombolytic treatment.Results should be correlated with other clinical andradiological data.Testing Methodology: Latex Immunoassay BNP: (ROBERT: 09/08/2016 03:23) ( [facility] 09/08/2016 03:45) Final results Test Result Flag Units (Reference) B-TYPE NATRIURETIC PEPTIDE 284 H pg/ml (5-100) CMP: (ROBERT: 09/08/2016 03:23) ( MsgRcvd 09/08/2016 03:43) Final results Test Result Flag Units (Reference) GLUCOSE 100 mg/dL (70-110) BUN 21 H mg/dL (7-18) CREATININE 1.0 mg/dL (0.6-1.3) Estimated GFR >60 mL/min Estimated GFR- >60 mL/min Note: Persistent reduction over 3 months in eGFR<60 mL/min/1.73 m2 defines CKD. Patients with eGFR values>=60 mL/min/1.73 m2 may also have CKD if evidence ofpersistent proteinuria. Additional information may be foundat www.[email or web address].org. SODIUM 144 mmol/L (136-145) POTASSIUM 4.2 mmol/L (3.5-5.1) CHLORIDE 106 mmol/L (98-107) CARBON DIOXIDE 28 mmol/L (21-32) CALCIUM 9.0 mg/dL (8.5-10.1) TOTAL PROTEIN 7.6 g/dL (6.4-8.2) ALBUMIN 3.7 g/dL (3.3-5.0) BILIRUBIN, TOTAL 0.7 mg/dL (0.0-1.0) ALKALINE PHOSPHATASE 123 H U/L (46-116) AST (SGOT) 43 H U/L (15-37) ALT (SGPT) 76 U/L (12-78) LIPASE 162 U/L (73-393) AMYLASE 28 U/L (25-115) CPK 63 U/L (24-260) TROPONIN I <0.05 L ng/mL (0.00-1.5) TROPONIN REFERENCE RANGE:<0.1 NEGATIVE0.1-1.5 INDETERMINANT>1.5 POSITIVE . PROGRESS AND PROCEDURES Course of Care: Name: Kyaw Sanju Vang Raffaele) : 1965 MR#: [id number] Ordering Provider: JOANA CHEUNG Exam(s): US ECHOCARDIOGRAM Date of Exam: 06/20/2016 __ REFERRING PHYSICIAN/PROVIDER: Joana Barton MD CONSULTING PULP MACHINE OPERATOR: Amor Caro MD PROCEDURE: M-mode 2D echocardiography with spectral and color flow Doppler TECHNICAL QUALITY: Fair INDICATION: CHF RHYTHM DURING PROCEDURE: Sinus rhythm INTERPRETATIONS: LEFT VENTRICLE: Left ventricle is normal size wall thickness and systolic function without any focal wall motion abnormalities. The ejection fraction is estimated at 55%. There is normal diastolic function noted. RIGHT VENTRICLE: The right ventricle is normal in size and function. ATRIA: Both atria are normal in size. The interatrial as septum appears intact and no obvious evidence for an ASD a PFO. MITRAL VALVE: Mitral valve is grossly normal. There is trace mitral regurgitation noted. AORTIC VALVE: Aortic valve appears trileaflet. The aortic valve opens well. There is no evidence of any aortic stenosis or aortic regurgitation noted. TRICUSPID VALVE: The tricuspid valve leaflets are thin and pliable. There is trace tricuspid regurgitation noted. The estimated right ventricular systolic pressure is 47 mmHg. PULMONIC VALVE: Pulmonic valve is not well visualized. There is trace pulmonic regurgitation noted. GREAT VESSELS: The aortic root is normal in size. PERICARDIUM: There is a trivial pericardial effusion noted. IMPRESSION: 1. Normal biventricular size and systolic function 2. Normal biatrial size 3. No significant valvular abnormalities 4. Moderately increased right ventricular systolic pressure (RVSP = 47 mmHg). Patient is stable. Discussed case with hospitalist, (Vladimir). Reviewed test results and need for additional work-up. Agreed upon decision to place in observation. Health care provider will see patient in ED. Patient/family counseled. Old medical records reviewed. Disposition: Admitted. Observation. CLINICAL IMPRESSION Chest pain. Congestive heart failure. (Electronically signed by Bulmaro Chavez MD 09/08/2016 7:48)
--- NOTE | 2016-09-08 04:05 | ED CLINICAL REPORT ---
Clinical Report - Physicians/Mid Levels [facility] [address] [place] [address] 09/08/2016 3:13 Patient: SANJU BROCK Time Seen: 03:18. Arrived- By private vehicle. Historian- patient. HISTORY OF PRESENT ILLNESS Chief Complaint: DYSPNEA and HISTORY OF CONGESTIVE HEART FAILURE. This started several days ago and is still present and now worse. It was gradual in onset and has been constant. The dyspnea is severe. The patient complains of severe, pressure-like chest pain (since earlier tonight), currently moderate. No calf pain. He has had mild right and left foot swelling. He has had orthopnea. (he did not take his Lasix for several days). REVIEW OF SYSTEMS No chills, fever, sweats, calf pain or cough. No palpitations, abdominal pain, constipation, diarrhea or nausea. No vomiting or urinary problems. He has had pedal edema. He says that he had a stress test at [place] about 2 years ago. All systems otherwise negative, except as recorded above. PAST HISTORY PCP - JAVIER HOPPER Problems: Dyspnea. Congestive Heart Failure. Rib Fracture. Crush injury . Contusion. Head Injury. Fall. Hyperlipidemia. Hypertension. Sprain. Pneumonia. Additional Surgeries: Cholecystectomy. Shoulder Surgery. Medications: OxyCONTIN Oral 30mg, 2x a day. LaMICtal Oral (Tablet 200 mg) 1 tablet. Lasix Oral (Tablet 20 mg) 1 tablet, daily. Aspirin Oral (Tablet 81 mg) 1 tablet, daily. OxyCODONE HCl Oral 15mg, 3x a day (for Arthritis). Toprol XL Oral 25 mg, daily. Allergies: None. SOCIAL HISTORY Current every day heavy tobacco smoker (cigarette)- less than 1 pack per day. Occasional alcohol use. No drug use. FAMILY HISTORY Heart disease in first-degree relative (mother). ADDITIONAL NOTES The nursing notes have been reviewed. PHYSICAL EXAM Vital Signs: 09/08/2016 03:17 BP: 196/87. HR: 95. RR: 20. O2 saturation: 82%. Temp: 98.7 F. Pain level now: 6/10. Have been reviewed. Appearance: Alert. Eyes: Pupils equal, round and reactive to light. ENT: Pharynx normal. CVS: Normal heart rate and rhythm. Heart sounds normal. Respiratory: Decreased air movement. (wet breath sounds). Abdomen: Soft and nontender. No organomegaly. Obese. Back: Normal inspection. Skin: Skin warm and dry. Normal skin color. Normal skin turgor. Extremities: Bilateral 1+ pitting edema of the lower extremities involving both feet, both ankles and both lower legs. No calf tenderness. LABS, X-RAYS, AND EKG EKG: Rate: 92. Q waves in lead V1, V2 and V3. EKG unchanged when compared with prior EKG. (18 June 2016). Chest X-ray: Congestive heart failure present. Pulmonary edema present. Vascular congestion present. Cardiomegaly. The X-rays were independently viewed by me. Laboratory Tests: UA-Culture if indicated: (ROBERT: 09/08/2016 03:29) ( [facility] 09/08/2016 03:46) Final results Test Result Flag Units (Reference) URINE COLOR YELLOW URINE APPEARANCE CLEAR URINE GLUCOSE NEGATIVE (NEGATIVE) URINE BILIRUBIN NEGATIVE (NEGATIVE) URINE KETONE NEGATIVE (NEGATIVE) URINE SPECIFIC GRAVITY <= 1.005 L (1.010-1.030) URINE PH 6.5 (5.0-8.0) URINE PROTEIN NEGATIVE (NEGATIVE) URINE UROBILINOGEN 0.2 EU/dL (0.2-1.0) URINE NITRITE NEGATIVE (NEGATIVE) URINE BLOOD NEGATIVE (NEGATIVE) URINE LEUK ESTERASE NEGATIVE (NEGATIVE) URINE RBC 0-1 rbc/hpf (0-1) URINE WBC 0-1 wbc/hpf (0-1) URINE EPITHELIAL CELLS 0-1 EPI/hpf (0-5) URINE BACTERIA NONE SEEN (NONE SEEN) URINE COMMENT CULT NOT INDICATED URINE CULTURES ARE SET-UP BASED ON THE FOLLOWING CRITERIA:POSITIVE NITRITEPOSITIVE LEUKOCYTE ESTERASEGREATER THAN 10 WHITE BLOOD CELLSMODERATE (2+) OR GREATER BACTERIA CBC w Diff: (ROBERT: 09/08/2016 03:23) ( [facility] 09/08/2016 03:27) Final results Test Result Flag Units (Reference) WHITE BLOOD COUNT 11.4 K/uL (4.5-11.5) RED BLOOD COUNT 5.11 M/uL (4.50-5.90) HEMOGLOBIN 15.2 gm/dL (13.5-17.5) HEMATOCRIT 46.7 % (41.0-53.0) MEAN CELL VOLUME 92 fL (80-100) MEAN CORPUSCULAR HGB 30 pg (26-34) MEAN CORPUSCULAR HGB CONC 33 g/dL (31-37) RED CELL DISTRIBUTION WIDTH 15.8 H % (11.6-14.8) PLATELET COUNT 153 K/uL (150-400) NEUTROPHIL % 74.5 % (50-75) LYMPH % 18.5 L % (25-40) MONO % 4.7 % (3-14) EOSINOPHIL % 2.0 % (0-4) BASOPHIL % 0.3 % (0-2) PT with INR: (ROBERT: 09/08/2016 03:23) ( [facility] 09/08/2016 03:36) Final results Test Result Flag Units (Reference) INR 0.9 (0.8-1.2) Low Intensity Therapy: INR 1.5-2.0 PT range 18.5-23.1Mod.Intensity Therapy: INR 2.0-3.0 PT range 23.1-31.5High Intensity Therapy: INR 2.5-3.5 PT range 27.4-35.5High Intensity Therapy 2: INR 3.0-4.0 PT range 31.5-39.3 APTT 28 SECONDS (24-34) D-DIMER QUANTITATIVE 0.49 ug/mLFEU (0.27-0.52) The primary value of this quantitative assay relates toits negative predictive value (i.e. exclusion) of pulmonaryembolism/deep vein thrombosis/DIC.Elevated levels of d-dimer may also occur with:, age, cancer, inflammation, liver disease,post-op, infection, hematoma, coronary disease, peripheralarteriopathy, bleeding disorders and thrombolytic treatment.Results should be correlated with other clinical andradiological data.Testing Methodology: Latex Immunoassay BNP: (ROBERT: 09/08/2016 03:23) ( [facility] 09/08/2016 03:45) Final results Test Result Flag Units (Reference) B-TYPE NATRIURETIC PEPTIDE 284 H pg/ml (5-100) CMP: (ROBERT: 09/08/2016 03:23) ( MsgRcvd 09/08/2016 03:43) Final results Test Result Flag Units (Reference) GLUCOSE 100 mg/dL (70-110) BUN 21 H mg/dL (7-18) CREATININE 1.0 mg/dL (0.6-1.3) Estimated GFR >60 mL/min Estimated GFR- >60 mL/min Note: Persistent reduction over 3 months in eGFR<60 mL/min/1.73 m2 defines CKD. Patients with eGFR values>=60 mL/min/1.73 m2 may also have CKD if evidence ofpersistent proteinuria. Additional information may be foundat [email or web address].org. SODIUM 144 mmol/L (136-145) POTASSIUM 4.2 mmol/L (3.5-5.1) CHLORIDE 106 mmol/L (98-107) CARBON DIOXIDE 28 mmol/L (21-32) CALCIUM 9.0 mg/dL (8.5-10.1) TOTAL PROTEIN 7.6 g/dL (6.4-8.2) ALBUMIN 3.7 g/dL (3.3-5.0) BILIRUBIN, TOTAL 0.7 mg/dL (0.0-1.0) ALKALINE PHOSPHATASE 123 H U/L (46-116) AST (SGOT) 43 H U/L (15-37) ALT (SGPT) 76 U/L (12-78) LIPASE 162 U/L (73-393) AMYLASE 28 U/L (25-115) CPK 63 U/L (24-260) TROPONIN I <0.05 L ng/mL (0.00-1.5) TROPONIN REFERENCE RANGE:<0.1 NEGATIVE0.1-1.5 INDETERMINANT>1.5 POSITIVE . PROGRESS AND PROCEDURES Course of Care: Name: Kyaw Sanju Vang Raffaele) : 1965 MR#: [id number] Ordering Provider: JOANA HCEUNG Exam(s): US ECHOCARDIOGRAM Date of Exam: 06/20/2016 __ REFERRING PHYSICIAN/PROVIDER: Joana Barton MD CONSULTING CHILDREN'S ZOO CARETAKER: Amor Caro MD PROCEDURE: M-mode 2D echocardiography with spectral and color flow Doppler TECHNICAL QUALITY: Fair INDICATION: CHF RHYTHM DURING PROCEDURE: Sinus rhythm INTERPRETATIONS: LEFT VENTRICLE: Left ventricle is normal size wall thickness and systolic function without any focal wall motion abnormalities. The ejection fraction is estimated at 55%. There is normal diastolic function noted. RIGHT VENTRICLE: The right ventricle is normal in size and function. ATRIA: Both atria are normal in size. The interatrial as septum appears intact and no obvious evidence for an ASD a PFO. MITRAL VALVE: Mitral valve is grossly normal. There is trace mitral regurgitation noted. AORTIC VALVE: Aortic valve appears trileaflet. The aortic valve opens well. There is no evidence of any aortic stenosis or aortic regurgitation noted. TRICUSPID VALVE: The tricuspid valve leaflets are thin and pliable. There is trace tricuspid regurgitation noted. The estimated right ventricular systolic pressure is 47 mmHg. PULMONIC VALVE: Pulmonic valve is not well visualized. There is trace pulmonic regurgitation noted. GREAT VESSELS: The aortic root is normal in size. PERICARDIUM: There is a trivial pericardial effusion noted. IMPRESSION: 1. Normal biventricular size and systolic function 2. Normal biatrial size 3. No significant valvular abnormalities 4. Moderately increased right ventricular systolic pressure (RVSP = 47 mmHg). Patient is stable. Discussed case with hospitalist, (Vladimir). Reviewed test results and need for additional work-up. Agreed upon decision to place in observation. Health care provider will see patient in ED. Patient/family counseled. Old medical records reviewed. Disposition: Admitted. Observation. CLINICAL IMPRESSION Chest pain. Congestive heart failure. (Electronically signed by Bulmaro Chavez MD 09/08/2016 7:48)
--- NOTE | 2016-09-08 04:06 | ED NURSING NOTES ---
Clinical Report - Nurses [facility] [place] [address] 09/08/2016 3:13 Patient: VIRGIL BROCK TRIAGE Triage time 03:17. Acuity: LEVEL 2. Chief Complaint: SHORTNESS OF BREATH and DIFFICULTY BREATHING. --03:27 Linda Franz R.N. 03:17 09/08/16. BP: 196/87 taken on the right arm, while lying. HR: 95 (regular and normal rate). RR: 20 (regular and labored). O2 saturation: 82% on room air. O2 started via nasal cannula at 2 liters/minute. Temp: 98.7 F (oral). Pain level now: 09/17. --03:27 Linda Franz R.N. Weight: 136 kg stated. Height/Length: 69 inches Per Patient. BMI: 44.3. --03:17 Linda Franz R.N. Medications OxyCODONE HCl Oral 15mg, 3x a day (for Arthritis). Toprol XL Oral 25 mg, daily. --03:22 Linda Franz R.N. Aspirin Oral (Tablet 81 mg) 1 tablet, daily. --03:23 Linda Franz R.N. Lasix Oral (Tablet 20 mg) 1 tablet, daily. --03:24 Linda Franz R.N. LaMICtal Oral (Tablet 200 mg) 1 tablet. --03:24 Linda Franz R.N. OxyCONTIN Oral 30mg, 2x a day. --03:25 Linda Franz R.N. Allergies None. --03:22 Linda Franz R.N. History Arrived by private vehicle. Historian: patient. Accompanied by family. Primary physician (kasi). Onset. (3 days ago). ( c/o tightness in chest with shortness of breath started about 3 days ago, has not taken Lasix in 3 days). He has had moderate wheezing. He has had mild, pressure-like chest pain described as radiating to the back. 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 (81mg). PAST MEDICAL HX: Immunizations: up-to-date. SOCIAL HX: Heavy tobacco smoker (cigarette)- less than 1 pack per day. Occasional alcohol use; consumes liquor occasionally. No drug use. No infectious disease exposure. ABUSE ASSESSMENT: No report of abuse. SELF HARM ASSESSMENT: A self harm assessment was performed. The patient answered "no" to the question "Have you recently felt down, depressed, or hopeless?", "Have you noticed less interest or pleasure in doing things?", "Do you have thoughts of harming or killing yourself?", "Are you here because you tried to hurt yourself?", "Have you ever tried to hurt yourself before today?", "Have you recently had thoughts about harming or killing others?" and "Do you have any dangerous items in your possession?". FALL RISK ASSESSMENT: Fall risk assessment completed. No fall risk identified. NUTRITIONAL RISK ASSESSMENT: The nutritional risk assessment revealed no deficiencies. FUNCTIONAL ASSESSMENT: Functional assessment: no impairments noted. LEARNING NEEDS ASSESSMENT: The learning needs assessment revealed no barriers. SKIN INTEGRITY ASSESSMENT: Skin integrity risk assessment completed. No skin integrity risk identified. --03:27 Linda Franz R.N. PROBLEMS: Dyspnea. Congestive Heart Failure. Rib Fracture. Crush injury . Contusion. Head Injury. Fall. Hyperlipidemia. Hypertension. Sprain. Pneumonia. --03:25 Linda Franz R.N. ADDITIONAL SURGERIES: Cholecystectomy. Shoulder Surgery. --03:25 Linda Franz R.N. Interventions ID band on patient. --03:27 Linda Franz R.N. PHYSICAL ASSESSMENT To room via wheelchair. GENERAL / NEURO / PSYCH: Alert. Oriented X 4. Appears in distress. HEENT: Mucous membranes are pink. RESPIRATORY: Severe respiratory distress. The patient can speak a few words at a time. Decreased breath sounds in the right upper lung; decreased breath sounds in the left upper lung. CVS: Cardiac rhythm: sinus tachycardia. Capillary refill less than 2 seconds. GI / : Abdomen soft and nontender. Bowel sounds within normal limits. SKIN: Skin is warm and dry. Normal skin turgor. --03:29 Linda Franz R.N. NURSING PROGRESS NOTES machine sizer, pulse oximeter and NIBP monitor placed on patient; news reel cameraman- Lead II. Patient gowned. Two patient identifiers checked. Call light placed in reach. Side rails up x 2. Bed placed in lowest position. Brakes of bed on. --03:30 Linda Franz R.N. Patient ready for evaluation- chart flagged. --03:30 Linda Franz R.N. ( MD in room). --03:31 Linda Franz R.N. 03:30 09/08/2016 Site #1 started via IV in the left antecubital space with an 20g angiocath, with aseptic technique and good blood return; one attempt. Blood drawn: rainbow set. Labeled in the presence of the patient and sent to the lab. Saline lock flushed with 10 mL saline. --03:34 Linda Franz R.N. 03:38 09/08/2016 Aspirin PO Tablets 325 mg given. Allergies verified and confirmed 5 rights. --03:38 Linda Franz R.N. EKG time: (0324). EKG was ordered, performed by a tech and shown to the ED physician. --03:39 Don Eastman, ER [employer] Grade Reading Teacher 03:39 09/08/2016 Nitrostat SL Tablets 0.4 mg given. Allergies verified and confirmed 5 rights. --03:39 Linda Franz R.N. 03:39 09/08/16. BP: 162/74. HR: 89. RR: 18. O2 saturation: 93% on nasal cannula at 2 liters/minute. Pain level now: 07/18. --03:41 Linda Franz R.N. CVS: The patient reports chest pain that is moderate in severity, is described as pressure-like and is associated with shortness of breath. --03:41 Linda Franz R.N. 03:45 09/08/2016 Nitrostat SL Tablets 0.4 mg given. Allergies verified and confirmed 5 rights. --03:46 Linda Franz R.N. 03:45 09/08/2016 Nitrostat SL Response: pain is improving. Symptoms have improved the patient feels better. (06/17). --03:45 Linda Franz R.N. Overall patient status is improved- he states feels better. CVS: The patient reports chest pain is still present but improving and currently mild in severity, described as pressure-like and radiating to the back and associated with shortness of breath. --03:47 Linda Franz R.N. 03:43 09/08/16. BP: 139/82. HR: 89. RR: 18 (regular and unlabored). O2 saturation: 92% on nasal cannula at 3 liters/minute. Temp: deferred. Pain level now: 06/17. --03:47 Linda Franz R.N. 03:51 09/08/2016 Nitrostat SL Tablets 0.4 mg given. Allergies verified and confirmed 5 rights. --03:52 Linda Franz R.N. 03:51 09/08/2016 Nitrostat SL Response: pain is improving. Symptoms have improved the patient feels better. (05/20). --03:51 Linda Franz R.N. Overall patient status is improved- he states feels better. ( in room orders received). CVS: The patient reports chest pain is still present but improving and currently mild in severity, described as pressure-like and radiating to the back and associated with shortness of breath. --03:54 Linda Franz R.N. 03:52 09/08/16. BP: 142/79 taken on the right arm, while lying. HR: 98 (regular). RR: 18 (regular and unlabored). O2 saturation: 93% at 5 liters/minute. Temp: deferred. Pain level now: 05/20. --03:54 Linda Franz R.N. machine sizer, pulse oximeter and NIBP monitor placed on patient; news reel cameraman- Lead II; monitor alarms on. --03:54 Linda Franz R.N. 04:00 09/08/16. BP: 138/74. HR: 86. RR: 18. O2 saturation: 93% at 5 liters/minute. Temp: deferred. Pain level now: 05/20. --04:05 Linda Franz R.N. Reassessment after oxygen administered. He is resting quietly. Overall patient status is improved- he states feels better. --04:05 Linda Franz R.N. 03:56 09/08/2016 Nitrostat SL Response: pain is improving. Symptoms have improved the patient feels better. (05/20). --04:10 Linda Franz R.N. 04:05 09/08/2016 Morphine IVP 2 mg given over 2 minute(s) via site #1. Allergies verified, confirmed 5 rights and sedative warning given to the patient. IV patency established. IV site checked: no pain, redness, or swelling. IV flushed thoroughly pre- and post-medication administration. IVP given by RN. --04:09 Linda Franz R.N. The patient is calm and resting quietly. RESPIRATORY: No respiratory distress. Breath sounds normal. CVS: The patient reports chest pain is still present but improving and currently mild in severity. SKIN: Skin is warm and dry. Skin color within normal limits. --04:23 Linda Franz R.N. 04:20 09/08/16. BP: 126/66 taken on the right arm, while lying. HR: 82 (regular and normal rate). RR: 16 (regular and unlabored). O2 saturation: 94% on nasal cannula at 5 liters/minute. Temp: deferred. Pain level now: 04/19. --04:23 Linda Franz R.N. The patient reports no complaints and he is resting quietly. --05:07 Linda Franz R.N. 05:07 09/08/16. BP: 114/65. HR: 84. RR: 18. O2 saturation: 94% on nasal cannula at 5 liters/minute. Temp: deferred. Pain level now: 04/19. --05:07 Linda Franz R.N. Intake & Output Urine: voided 1000 mL 04:24, with return of yellow-colored clear urine. --04:24 Linda Franz R.N. DISPOSITION / DISCHARGE 05:06 09/08/2016 Site #[address] upon admission; patent, no pain and no signs of infection or infiltration. Good blood return present. Flushed with 10 mL saline; flushes easily. --05:20 Linda Franz R.N. Departure time: 513. Transported via stretcher by tech with O2. Report was given to a nurse via a phone call. Report included patient's care, treatment, medications, reviewed medication reconcilliation, and condition (including any recent changes or anticipated changes). All questions were answered. Report was acknowledged and care was transferred. (Maine RN @[phone]). Bed obtained and ready (210a). Patient's personal items include: cell phone; items were transported with the patient. --05:20 Linda Franz R.N. 05:17 09/08/16. BP: deferred. HR: deferred. RR: deferred. O2 saturation: deferred. Temp: deferred. Pain level now deferred. --05:20 Linda Franz R.N. Locked/Released at 09/08/2016 5:20 by Linda Franz R.N.
--- NOTE | 2016-09-08 04:06 | ED NURSING NOTES ---
Clinical Report - Nurses [address] [place] [address] 09/08/2016 3:13 Patient: VIRGIL BROCK TRIAGE Triage time 03:17. Acuity: LEVEL 2. Chief Complaint: SHORTNESS OF BREATH and DIFFICULTY BREATHING. --03:27 Linda Franz R.N. 03:17 09/08/16. BP: 196/87 taken on the right arm, while lying. HR: 95 (regular and normal rate). RR: 20 (regular and labored). O2 saturation: 82% on room air. O2 started via nasal cannula at 2 liters/minute. Temp: 98.7 F (oral). Pain level now: 09/17. --03:27 Linda Franz R.N. Weight: 136 kg stated. Height/Length: 69 inches Per Patient. BMI: 44.3. --03:17 Linda Franz R.N. Medications OxyCODONE HCl Oral 15mg, 3x a day (for Arthritis). Toprol XL Oral 25 mg, daily. --03:22 Linda Franz R.N. Aspirin Oral (Tablet 81 mg) 1 tablet, daily. --03:23 Linda Franz R.N. Lasix Oral (Tablet 20 mg) 1 tablet, daily. --03:24 Linda Franz R.N. LaMICtal Oral (Tablet 200 mg) 1 tablet. --03:24 Linda Franz R.N. OxyCONTIN Oral 30mg, 2x a day. --03:25 Linda Franz R.N. Allergies None. --03:22 Linda Franz R.N. History Arrived by private vehicle. Historian: patient. Accompanied by family. Primary physician (kasi). Onset. (3 days ago). ( c/o tightness in chest with shortness of breath started about 3 days ago, has not taken Lasix in 3 days). He has had moderate wheezing. He has had mild, pressure-like chest pain described as radiating to the back. 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 (81mg). PAST MEDICAL HX: Immunizations: up-to-date. SOCIAL HX: Heavy tobacco smoker (cigarette)- less than 1 pack per day. Occasional alcohol use; consumes liquor occasionally. No drug use. No infectious disease exposure. ABUSE ASSESSMENT: No report of abuse. SELF HARM ASSESSMENT: A self harm assessment was performed. The patient answered "no" to the question "Have you recently felt down, depressed, or hopeless?", "Have you noticed less interest or pleasure in doing things?", "Do you have thoughts of harming or killing yourself?", "Are you here because you tried to hurt yourself?", "Have you ever tried to hurt yourself before today?", "Have you recently had thoughts about harming or killing others?" and "Do you have any dangerous items in your possession?". FALL RISK ASSESSMENT: Fall risk assessment completed. No fall risk identified. NUTRITIONAL RISK ASSESSMENT: The nutritional risk assessment revealed no deficiencies. FUNCTIONAL ASSESSMENT: Functional assessment: no impairments noted. LEARNING NEEDS ASSESSMENT: The learning needs assessment revealed no barriers. SKIN INTEGRITY ASSESSMENT: Skin integrity risk assessment completed. No skin integrity risk identified. --03:27 Linda Franz R.N. PROBLEMS: Dyspnea. Congestive Heart Failure. Rib Fracture. Crush injury . Contusion. Head Injury. Fall. Hyperlipidemia. Hypertension. Sprain. Pneumonia. --03:25 Linda Franz R.N. ADDITIONAL SURGERIES: Cholecystectomy. Shoulder Surgery. --03:25 Linda Franz R.N. Interventions ID band on patient. --03:27 Linda Franz R.N. PHYSICAL ASSESSMENT To room via wheelchair. GENERAL / NEURO / PSYCH: Alert. Oriented X 4. Appears in distress. HEENT: Mucous membranes are pink. RESPIRATORY: Severe respiratory distress. The patient can speak a few words at a time. Decreased breath sounds in the right upper lung; decreased breath sounds in the left upper lung. CVS: Cardiac rhythm: sinus tachycardia. Capillary refill less than 2 seconds. GI / : Abdomen soft and nontender. Bowel sounds within normal limits. SKIN: Skin is warm and dry. Normal skin turgor. --03:29 Linda Franz R.N. NURSING PROGRESS NOTES satellite project site monitor, pulse oximeter and NIBP monitor placed on patient; surveillance monitor- Lead II. Patient gowned. Two patient identifiers checked. Call light placed in reach. Side rails up x 2. Bed placed in lowest position. Brakes of bed on. --03:30 Linda Franz R.N. Patient ready for evaluation- chart flagged. --03:30 Linda Franz R.N. ( MD in room). --03:31 Linda Franz R.N. 03:30 09/08/2016 Site #1 started via IV in the left antecubital space with an 20g angiocath, with aseptic technique and good blood return; one attempt. Blood drawn: rainbow set. Labeled in the presence of the patient and sent to the lab. Saline lock flushed with 10 mL saline. --03:34 Linda Franz R.N. 03:38 09/08/2016 Aspirin PO Tablets 325 mg given. Allergies verified and confirmed 5 rights. --03:38 Linda Franz R.N. EKG time: (0324). EKG was ordered, performed by a tech and shown to the ED physician. --03:39 Don Eastman, ER [employer] 03:39 09/08/2016 Nitrostat SL Tablets 0.4 mg given. Allergies verified and confirmed 5 rights. --03:39 Linda Franz R.N. 03:39 09/08/16. BP: 162/74. HR: 89. RR: 18. O2 saturation: 93% on nasal cannula at 2 liters/minute. Pain level now: 07/18. --03:41 Linda Franz R.N. CVS: The patient reports chest pain that is moderate in severity, is described as pressure-like and is associated with shortness of breath. --03:41 Linda Franz R.N. 03:45 09/08/2016 Nitrostat SL Tablets 0.4 mg given. Allergies verified and confirmed 5 rights. --03:46 Linda Franz R.N. 03:45 09/08/2016 Nitrostat SL Response: pain is improving. Symptoms have improved the patient feels better. (06/17). --03:45 Linda Franz R.N. Overall patient status is improved- he states feels better. CVS: The patient reports chest pain is still present but improving and currently mild in severity, described as pressure-like and radiating to the back and associated with shortness of breath. --03:47 Linda Franz R.N. 03:43 09/08/16. BP: 139/82. HR: 89. RR: 18 (regular and unlabored). O2 saturation: 92% on nasal cannula at 3 liters/minute. Temp: deferred. Pain level now: 06/17. --03:47 Linda Franz R.N. 03:51 09/08/2016 Nitrostat SL Tablets 0.4 mg given. Allergies verified and confirmed 5 rights. --03:52 Linad Franz R.N. 03:51 09/08/2016 Nitrostat SL Response: pain is improving. Symptoms have improved the patient feels better. (05/20). --03:51 Linda Franz R.N. Overall patient status is improved- he states feels better. ( in room orders received). CVS: The patient reports chest pain is still present but improving and currently mild in severity, described as pressure-like and radiating to the back and associated with shortness of breath. --03:54 Linda Franz R.N. 03:52 09/08/16. BP: 142/79 taken on the right arm, while lying. HR: 98 (regular). RR: 18 (regular and unlabored). O2 saturation: 93% at 5 liters/minute. Temp: deferred. Pain level now: 05/20. --03:54 Linda Franz R.N. satellite project site monitor, pulse oximeter and NIBP monitor placed on patient; surveillance monitor- Lead II; monitor alarms on. --03:54 Linda Franz R.N. 04:00 09/08/16. BP: 138/74. HR: 86. RR: 18. O2 saturation: 93% at 5 liters/minute. Temp: deferred. Pain level now: 05/20. --04:05 Linda Franz R.N. Reassessment after oxygen administered. He is resting quietly. Overall patient status is improved- he states feels better. --04:05 Linda Franz R.N. 03:56 09/08/2016 Nitrostat SL Response: pain is improving. Symptoms have improved the patient feels better. (05/20). --04:10 Linda Franz R.N. 04:05 09/08/2016 Morphine IVP 2 mg given over 2 minute(s) via site #1. Allergies verified, confirmed 5 rights and sedative warning given to the patient. IV patency established. IV site checked: no pain, redness, or swelling. IV flushed thoroughly pre- and post-medication administration. IVP given by RN. --04:09 Linda Franz R.N. The patient is calm and resting quietly. RESPIRATORY: No respiratory distress. Breath sounds normal. CVS: The patient reports chest pain is still present but improving and currently mild in severity. SKIN: Skin is warm and dry. Skin color within normal limits. --04:23 Linda Franz R.N. 04:20 09/08/16. BP: 126/66 taken on the right arm, while lying. HR: 82 (regular and normal rate). RR: 16 (regular and unlabored). O2 saturation: 94% on nasal cannula at 5 liters/minute. Temp: deferred. Pain level now: 04/19. --04:23 Linda Franz R.N. The patient reports no complaints and he is resting quietly. --05:07 Linda Franz R.N. 05:07 09/08/16. BP: 114/65. HR: 84. RR: 18. O2 saturation: 94% on nasal cannula at 5 liters/minute. Temp: deferred. Pain level now: 04/19. --05:07 Linda Franz R.N. Intake & Output Urine: voided 1000 mL 04:24, with return of yellow-colored clear urine. --04:24 Linda Franz R.N. DISPOSITION / DISCHARGE 05:06 09/08/2016 Site #[address] upon admission; patent, no pain and no signs of infection or infiltration. Good blood return present. Flushed with 10 mL saline; flushes easily. --05:20 Linda Franz R.N. Departure time: 513. Transported via stretcher by tech with O2. Report was given to a nurse via a phone call. Report included patient's care, treatment, medications, reviewed medication reconcilliation, and condition (including any recent changes or anticipated changes). All questions were answered. Report was acknowledged and care was transferred. (Maine RN @[phone]). Bed obtained and ready (210a). Patient's personal items include: cell phone; items were transported with the patient. --05:20 Linda Franz R.N. 05:17 09/08/16. BP: deferred. HR: deferred. RR: deferred. O2 saturation: deferred. Temp: deferred. Pain level now deferred. --05:20 Linda Franz R.N. Locked/Released at 09/08/2016 5:20 by Linda Franz R.N.
--- NOTE | 2016-09-08 04:06 | ED ORDER SUMMARY ---
..... Patient: VIRGIL BROCK OrderSheet [facility] VisitID: [id number] [place] [address] 50y, M Registration Date/Time: 09/08/2016 ORDER SHEET Weight: 136.0 kg (stated) Allergies: None GENERAL ORDERS: Chest 1V Urgent (03:18 09/08/2016 Noris BAKER) (Ack 3:26 Meagan) (3:34 CBradburn R.N.) Senior Teller (Continuous) (03:18 09/08/2016 Noris BAKER) (3:30 CBradburn R.N.) CBC w Diff Urgent (03:09/08/2016 Noris BAKER) (Ack 3:26 Meagan) (3:30 CBradburn R.N.) CMP Urgent (03:09/08/2016 Noris ABKER) (Ack 3:26 Meagan) (3:30 CBradburn R.N.) UA-Culture if indicated Urgent (03:09/08/2016 Noris BAKER) (Ack 3:26 Meagan) (3:30 CBradburn R.N.) PT with INR Urgent (03:09/08/2016 Noris BAKER) (Ack 3:26 Meagan) (3:30 CBradburn R.N.) PTT Urgent (03:09/08/2016 Noris BAKER) (Ack 3:26 Meagan) (3:30 DEWAYNEradburn R.N.) Amylase Urgent (03:09/08/2016 Noris BAKER) (Ack 3:26 Meagan) (3:30 DEWAYNEradburn R.N.) Lipase Urgent (03:09/08/2016 Noris BAKER) (Ack 3:26 Meagan) (3:30 Sandip R.N.) CPK Urgent (03:09/08/2016 Noris BAKER) (Ack 3:26 Meagan) (3:30 DEWAYNEradburn R.N.) Troponin-I Urgent (03:09/08/2016 Noris BAKER) (Ack 3:26 Meagan) (3:30 Sandip R.N.) D-Dimer Urgent (03:19 09/08/2016 Noris BAKER) (Ack 3:26 Meagan) (3:30 Sandip R.N.) BNP Urgent (03:09/08/2016 Noris BAKER) (Ack 3:26 Meagan) (3:30 Sandip R.N.) Oxygen (2 L/min) (NC) (03:19 09/08/2016 Noris BAKER) (Ack 3:26 Meagan) (3:30 Sandip R.N.) Pulse oximeter (03:09/08/2016 Noris BAKER) (Ack 3:26 Meagan) (3:30 Sandip R.N.) EKG - ER Stat (03:09/08/2016 Noris BAKER) (Ack 3:26 Meagan) (3:27 Meagan) MEDICATION ORDERS: Aspirin PO 325 mg (NOW) (03:33 09/08/2016 Noris BAKER) (Ack 3:35 CBradju R.N.) (3:38 Sandip R.N.) Nitrostat SL 0.4 mg (NOW, x3 PRN Chest Pain) (03:33 09/08/2016 Noris BAKER) (Ack 3:35 Sandip R.N.) (3:39 Sandip R.N.) IV FLUIDS: IV Saline Lock (03:09/08/2016 Noris BAKER) (3:34 Sandip R.N.) Morphine IV 2 mg (HIGH ALERT MEDICATION, NOW) (04:06 09/08/2016 Noris BAKER) (Ack 4:09 Sandip R.N.) (4:09 Sandip R.N.) ORDER SHEET NOTES: [Electronically signed by Linda Franz R.N. (05:20 09/08/2016)] [Electronically signed by Bulmaro Chavez MD (07:48 09/08/2016)] [Electronically locked/signed by Linda Franz R.N. (05:20 09/08/2016)]
--- NOTE | 2016-09-08 04:06 | ED ORDER SUMMARY ---
..... Patient: VIRGIL BROCK OrderSheet [facility] VisitID: [id number] [place] [address] 50y, M Registration Date/Time: 09/08/2016 ORDER SHEET Weight: 136.0 kg (stated) Allergies: None GENERAL ORDERS: Chest 1V Urgent (03:18 09/08/2016 Noris BAKER) (Ack 3:26 Meagan) (3:34 CBradburn R.N.) Air Pollution Auditor (Continuous) (03:18 09/08/2016 Noris BAKER) (3:30 CBradburn R.N.) CBC w Diff Urgent (03:09/08/2016 Noris BAKER) (Ack 3:26 Meagan) (3:30 CBradburn R.N.) CMP Urgent (03:09/08/2016 Noris BAKER) (Ack 3:26 Meagan) (3:30 CBradburn R.N.) UA-Culture if indicated Urgent (03:09/08/2016 Noris BAKER) (Ack 3:26 Meagan) (3:30 CBradburn R.N.) PT with INR Urgent (03:09/08/2016 Noris BAKER) (Ack 3:26 Meagan) (3:30 CBradburn R.N.) PTT Urgent (03:09/08/2016 Noris BAKER) (Ack 3:26 Meagan) (3:30 DEWAYNEradburn R.N.) Amylase Urgent (03:09/08/2016 Noris BAKER) (Ack 3:26 Meagan) (3:30 DEWAYNEradburn R.N.) Lipase Urgent (03:09/08/2016 Noris BAKER) (Ack 3:26 Meagan) (3:30 Sandip R.N.) CPK Urgent (03:09/08/2016 Noris BAKER) (Ack 3:26 Meagan) (3:30 DEWAYNEradburn R.N.) Troponin-I Urgent (03:09/08/2016 Noris BAKER) (Ack 3:26 Meagan) (3:30 Sandip R.N.) D-Dimer Urgent (03:19 09/08/2016 Noris BAKER) (Ack 3:26 Meagan) (3:30 Sandip R.N.) BNP Urgent (03:09/08/2016 Noris BAKER) (Ack 3:26 Meagan) (3:30 Sandip R.N.) Oxygen (2 L/min) (NC) (03:19 09/08/2016 Noris BAKER) (Ack 3:26 Meagan) (3:30 Sandip R.N.) Pulse oximeter (03:09/08/2016 Noris BAKER) (Ack 3:26 Meagan) (3:30 Sandip R.N.) EKG - ER Stat (03:09/08/2016 Noris BAKER) (Ack 3:26 Meagan) (3:27 Meagan) MEDICATION ORDERS: Aspirin PO 325 mg (NOW) (03:33 09/08/2016 Noris BAKER) (Ack 3:35 CBradju R.N.) (3:38 Sandip R.N.) Nitrostat SL 0.4 mg (NOW, x3 PRN Chest Pain) (03:33 09/08/2016 Noris BAKER) (Ack 3:35 Sandip R.N.) (3:39 Sandip R.N.) IV FLUIDS: IV Saline Lock (03:09/08/2016 Noris BAKER) (3:34 Sandip R.N.) Morphine IV 2 mg (HIGH ALERT MEDICATION, NOW) (04:06 09/08/2016 Noris BAKER) (Ack 4:09 Sandip R.N.) (4:09 Sandip R.N.) ORDER SHEET NOTES: [Electronically signed by Linda Franz R.N. (05:20 09/08/2016)] [Electronically signed by Bulmaro Chavez MD (07:48 09/08/2016)] [Electronically locked/signed by Linda Franz R.N. (05:20 09/08/2016)]
[2016-09-08] MEDS ORDERED: LOPRESSOR25 MG PO (05:05)
[2016-09-08] MEDS ORDERED: OXYCONTIN30 MG PO (05:10)
[2016-09-08 05:32] VITALS: BP 146/83
--- NOTE | 2016-09-08 05:41 | History & Physical Report ---
Information Source Information Source: Self Reliability: Fair History Chief Complaint shortness of breath History of Present Illness Patient is a 50 year old male with a past medical history of chf, copd, hypertension, and seizure disorder that is presenting with a 3 day history of shortness of breath. Patient had been admitted her in june with chf exacerbation, patient was discharged from the hospital in relatively good heatlh and he was doing well at home. Patient recently had difficulty filling his prescriptions due to financial reasons and resorted to being without his lasix for 3 days. Patient noticed that he was having progressively harder times breathing, Patient during this time was able to pay for cigarettes and did not curtail his smoking habit. Patient continued to suffer from this continual shortness of breath, until he was able to fill his prescriptions. He took one dose of his medciations which did not assist much in his breathing, but helped some. Due to the resistance of the medication workingn the patient thought it would be best if he came to the hospital for evaluation. Patient seen to be saturating poorly on room air and was placed on 3 l NC, where he is saturating relatively normally. Patient History 1. COPD (chronic obstructive pulmonary disease) 2. Acute CHF (congestive heart failure) 3. Rheumatoid arthritis 4. Obesity 5. Hypertension 6. Nicotine dependence Social History Patient is not currently employed. He lives at home with his and is indepent in all his ADLs. Patient smokes close to a pack a day for the past 35 years. Patient does not drink, or use illicit substances. Family History Family history was reviewed; no changes noted. Advance Directive Living Will Medications and Allergies Medications Home Medications Toprol XL 25 mg daily Aspirin 81 mg daily Lamicatl 200 mg daily Oxycodone 5/325 daily Oxycontin 30 mg BID Current Medications Sig/Hernan Start time Last Medication Dose Route Stop Time Status Admin Aspirin 81 MG DAILY 09/08 899 AC PO Furosemide 20 MG DIUB 09/08 899 AC IV Lamotrigine 200 MG DAILY 09/08 899 AC PO Methylprednisolone 60 MG BID 09/08 899 AC Sodium Succinate IV Metoprolol Succinate 25 MG DAILY 09/08 899 AC PO Oxycodone HCl 30 MG BID 09/08 899 UNV PO Pantoprazole Sodium 40 MG DAILY@09/08 AC 09/08 Sesquihydrate PO 0530 Albuterol/Ipratropium 3 ML RTQ6H PRN 09/08 0415 AC IN Oxycodone/ 1 TAB Q8H 09/08 0415 UNV Acetaminophen PO Acetaminophen 650 MG Q6H PRN 09/080 AC PO Al Hydrox/Mg Hydrox/ 15 ML Q1H PRN 09/08 499 AC Simethicone PO Atropine Sulfate 0.5 MG Q3MIN PRN 09/08 499 AC IV Lidocaine HCl See Dose ONCE PRN 09/08 499 AC Insts (1) IV Magnesium Hydroxide 10 ML DAILY PRN 09/08 499 AC PO Morphine Sulfate 2 MG Q3M PRN 09/08 499 AC IV Nitroglycerin 0.4 MG Q5M PRN 09/08 499 AC SL Dose Instructions: (1)Lidocaine HCl: 1.5 MG/KG Allergies Coded Allergies: NKA (09/08/16) Review of Systems Constitutional Denies: Fever, Chills, Sweats, Weakness, Malaise, Other. Eyes Denies: Pain, Vision Change, Conjunctival Inflammation, Eyelid Inflammation, Redness, Other. ENT Ear Pain, Ear Discharge, Nose Pain, Nasal Discharge, Nasal Congestion, Mouth Pain, Mouth Swelling, Throat Pain, Throat Swelling, Other. Respiratory Cough, SOB w/exertion, Wheezing. Denies: Dry, Hemoptysis, Pleuritic Pain, Sputum, Other. Cardiovascular Palpitations. Denies: Chest Pain, Orthopnea, PND, Edema, Light-headedness, Other. Gastrointestinal Denies: Nausea, Vomiting, Abdominal Pain, Diarrhea, Constipation, Melena, Hematochezia, Other. Genitourinary Denies: Dysuria, Frequency, Incontinence, Hematuria, Retention, Other. Musculoskeletal Denies: Neck Pain, Shoulder Pain, Arm Pain, Back Pain, Hand Pain, Leg Pain, Foot Pain, Other. Skin Denies: Rash, Lesions, Jaundice, Bruising, Other. Neurological Denies: Weakness, Numbness, Incoordination, Change in speech, Confusion, Seizures, Other. Physical Exam Vital Signs / I&Os Vital Signs Date Time Temp Pulse Resp B/P Pulse O2 O2 Flow FiO2 Ox Delivery Rate 09/09 531 98.8 82 18 146/83 95 Nasal 2.0 Cannula General Appearance Alert, Oriented X3, No acute distress HEENT Atraumatic, Moist mucous membranes Lungs - poor air exchange - no wheezes or ronchi noted Neck Supple, No JVD, No thyromegaly, No lymphadenopathy Cardiovascular Regular rate and rhythm, No murmurs, gallops, rubs Abdomen Soft, - obese Extremities No clubbing, No edema, Normal pulses, No tenderness Skin No Breakdown Neurological Normal gait, Normal speech, Cranial nerves intact, No lateralizing signs Psych/Mental Status Mood normal LAB Results Laboratory Tests 09/08 09/08 09/08 0323 0323 0329 Chemistry Plasma Sodium (136 - 145 mmol/L) 144 Plasma Potassium (3.5 - 5.1 mmol/L) 4.2 Plasma Chloride (98 - 107 mmol/L) 106 CO2 (Enzymatic) (21 - 32 mmol/L) 28 BUN (7 - 18 mg/dL) 21 Creatinine (0.6 - 1.3 mg/dL) 1.0 Est GFR ( Amer) (mL/min) >60 Est GFR (Non-Af Amer) (mL/min) >60 Glucose (70 - 110 mg/dL) 100 Plasma Calcium (8.5 - 10.1 mg/dL) 9.0 Total Bilirubin (0.0 - 1.0 mg/dL) 0.7 AST (15 - 37 U/L) 43 ALT (12 - 78 U/L) 76 Alkaline Phosphatase (46 - 116 U/L) 123 Creatine Kinase (24 - 260 U/L) 63 Troponin (0.00 - 1.5 ng/mL) <0.05 B-Natriuretic Peptide (5 - 100 pg/ml) 284 Total Protein (6.4 - 8.2 g/dL) 7.6 Albumin (3.3 - 5.0 g/dL) 3.7 Amylase (25 - 115 U/L) 28 Lipase (73 - 393 U/L) 162 Coagulation INR (0.8 - 1.2) 0.9 APTT (24 - 34 SECONDS) 28 D-Dimer, Quantitative (0.27 - 0.52 ug/mLFEU) 0.49 Hematology WBC (4.5 - 11.5 K/uL) 11.4 RBC (4.50 - 5.90 M/uL) 5.11 Hgb (13.5 - 17.5 gm/dL) 15.2 Hct (41.0 - 53.0 %) 46.7 MCV (80 - 100 fL) 92 MCH (26 - 34 pg) 30 RDW (11.6 - 14.8 %) 15.8 Neut % (Auto) (50 - 75 %) 74.5 Lymph % (Auto) (25 - 40 %) 18.5 Love % (Auto) (3 - 14 %) 4.7 Eos % (Auto) (0 - 4 %) 2.0 Baso % (Auto) (0 - 2 %) 0.3 Plt Count, EDTA (150 - 400 K/uL) 153 PUBS MCHC (31 - 37 g/dL) 33 Urines Urine Color YELLOW Urine Appearance CLEAR Urine pH (5.0 - 8.0) 6.5 Ur Specific [place] (1.010 - 1.030) <= 1.005 Urine Protein (NEGATIVE) NEGATIVE Urine Ketones (NEGATIVE) NEGATIVE Urine Blood (NEGATIVE) NEGATIVE Urine Nitrite (NEGATIVE) NEGATIVE Urine Bilirubin (NEGATIVE) NEGATIVE Urine Urobilinogen (0.2 - 1.0 EU/dL) 0.2 Ur Leukocyte Esterase (NEGATIVE) NEGATIVE Urine RBC (0 - 1 rbc/hpf) 0-1 Urine WBC (0 - 1 wbc/hpf) 0-1 Ur Epithelial Cells (0 - 5 EPI/hpf) 0-1 Urine Bacteria (NONE SEEN) NONE SEEN Urine Glucose (NEGATIVE) NEGATIVE Urine Comment CULT NOT INDICATED Assessment and Plan Problem List 1. COPD (chronic obstructive pulmonary disease) Status Chronic Onset Date Unknown Plan - combination copd exacerbation and slight chf exacerbation - pt has a significant smoking history which has not changes despite multiple hospitilizations - patient has slightly diminished air exchange which may be natrual progression or exacerbation due to increase fluid retention - will provide patient with IV steroids and around the clock duonebs - patient additionally does not wear oxygen at home and is on 3 liters here - would recommend that the patient not leave until able to ambulate on room air 2. Hypertension Status Chronic Onset Date Unknown Plan - established diagnosis - blood pressure controlled - toprol XL 25 mg daily 3. Acute CHF (congestive heart failure) Plan - pt has an established history of chf - last echo showed adequate ejection fraction - will recommend that the patient take lasix 20 mg bid - will recommend 2 liter fluid restriction - no need for repeat echo 4. Nicotine dependence Status Chronic Onset Date Unknown Plan - pt still smokes a pack a day - pt encouraged to stop smoking
--- NOTE | 2016-09-08 05:57 | DIAGNOSTIC IMAGING REPORT ---
PROCEDURE: XR CHEST 1 VIEW INDICATION: SHORTNESS OF BREATH TECHNIQUE: Portable AP view 03:33 a.m. COMPARISON: Chest x-ray 06/18/2016. FINDINGS: Lungs are clear. Stable mild cardiomegaly with pulmonary vascular congestion and fluid in the minor fissure. Thorax is normal. IMPRESSION: 1. Mild CHF
--- NOTE | 2016-09-08 07:11 | Progress Note ---
Subjective General Note Date: 09/08/2016 Admission Date: 09/08/2016 Hospital Day: 1 PCP: No PCP Status: acute care in patient. Advanced Directive: Room: 211 50 year old male with hgx of chf, copd, hypertension, and seizure disorder who was seen after 3 days of shortness of breath. She states he is more tired than anything. Patient reports that 3 days coming into the hospital admission he had taken his medication. Patient states he ran out of his medication and therefore he was worsening. Constitutional Denies: Sweats, Weakness. Respiratory Cough, SOB w/exertion. Physical Exam Vital Signs / I&Os Vital Signs Date Time Temp Pulse Resp B/P Pulse O2 O2 Flow FiO2 Ox Delivery Rate 09/08 0532 98.8 82 18 146/83 95 Nasal 2.0 Cannula General Appearance Oriented X3, Cooperative HEENT EOMI Lungs Normal air movement Cardiovascular Normal S1 and S2 Extremities No clubbing, No edema Assessment and Plan Problem List 1. COPD (chronic obstructive pulmonary disease) Status Chronic Onset Date Unknown Plan COPD exacerbation. Currently on prednisone and antibiotic. Patient is asking to be discharged today. Patient has no further oxygen needs. 2. Hypertension Status Chronic Onset Date Unknown Plan Well established. Continue with the home medication 3. Acute CHF (congestive heart failure) Plan Patient reports that he has run out of his medication for treating his congestive heart failure. Patient's last echo was back in June 2016. Patient reports that he feels like his body's for fluid; and the Lasix is not working quite as well as it has in the past 4. Nicotine dependence Status Chronic Onset Date Unknown Plan Discussion regarding smoking cessation. Patient would be best to be on nicotine replacement rather than continue with smoking activities. E&M Codes Rounding: none
--- NOTE | 2016-09-08 07:48 | ED MED RECONCILIATION SUMMARY ---
Patient: VIRGIL BROCK Medication Reconciliation Report [facility] VisitID: [id number] [address] [place] [address] 50y, M Registration Date/Time: 09/08/2016 Weight: 136.0 kg Height/Length: 69 in. BMI: 44.3 ALLERGIES: None The patient's Home Medications are listed below: THE FOLLOWING MEDICATIONS NEED TO BE RECONCILED: Aspirin Oral (81 mg) 1 tablet, daily LaMICtal Oral (200 mg) 1 tablet Lasix Oral (20 mg) 1 tablet, daily OxyCODONE HCl Oral 15mg, 3x a day, for Arthritis OxyCONTIN Oral 30mg, 2x a day Toprol XL Oral 25 mg, daily The source(s) of the original Home Medication information: Not obtained. The following Medications were given to the patient in the Emergency Department: Aspirin [PO] PO 325 mg, administered: 09/08/2016 3:38:00 AM Nitrostat [SL] SL 0.4 mg, administered: 09/08/2016 3:39:00 AM Nitrostat [SL] SL 0.4 mg, administered: 09/08/2016 3:45:00 AM Nitrostat [SL] SL 0.4 mg, administered: 09/08/2016 3:51:00 AM Morphine [IVP] IVP 2 mg, administered: 09/08/2016 4:05:00 AM The following Medications were prescribed to the patient: None.
--- NOTE | 2016-09-08 07:48 | ED MED RECONCILIATION SUMMARY ---
Patient: VIRGIL BROCK Medication Reconciliation Report [facility] VisitID: [id number] [address] [place] [address] 50y, M Registration Date/Time: 09/08/2016 Weight: 136.0 kg Height/Length: 69 in. BMI: 44.3 ALLERGIES: None The patient's Home Medications are listed below: THE FOLLOWING MEDICATIONS NEED TO BE RECONCILED: Aspirin Oral (81 mg) 1 tablet, daily LaMICtal Oral (200 mg) 1 tablet Lasix Oral (20 mg) 1 tablet, daily OxyCODONE HCl Oral 15mg, 3x a day, for Arthritis OxyCONTIN Oral 30mg, 2x a day Toprol XL Oral 25 mg, daily The source(s) of the original Home Medication information: Not obtained. The following Medications were given to the patient in the Emergency Department: Aspirin [PO] PO 325 mg, administered: 09/08/2016 3:38:00 AM Nitrostat [SL] SL 0.4 mg, administered: 09/08/2016 3:39:00 AM Nitrostat [SL] SL 0.4 mg, administered: 09/08/2016 3:45:00 AM Nitrostat [SL] SL 0.4 mg, administered: 09/08/2016 3:51:00 AM Morphine [IVP] IVP 2 mg, administered: 09/08/2016 4:05:00 AM The following Medications were prescribed to the patient: None.
--- NOTE | 2016-09-08 07:48 | ED DISCHARGE INSTRUCTIONS ---
Patient: VIRGIL BROCK General Instructions [facility] VisitID: [id number] [address] [place] [address] 50y, M Registration Date/Time: 09/08/2016 Chest pain. Congestive heart failure. (Electronically signed by Bulmaro Chavez MD 09/08/2016 7:48)
--- NOTE | 2016-09-08 07:48 | ED MAR SUMMARY ---
..... Medication Administration Record [facility] [address] [place] [address] Patient: VIRGIL BROCK Visit ID: [id number] 50y, M Weight: 136.0 kg Height/Length: 69 in BMI: 44.3 ALLERGIES: None Given 03:38 09/08/2016 Linda Franz R.N. Medication Administered: ASPIRIN [PO], Dose: 325 mg Tablets PO. Medication Ordered: Aspirin PO 325 mg (NOW). Given 03:39 09/08/2016 Linda Franz R.N. Medication Administered: NITROSTAT [SL], Dose: 0.4 mg Tablets SL. Medication Ordered: Nitrostat SL 0.4 mg (NOW, x3 PRN Chest Pain). Given 03:45 09/08/2016 Linda Franz R.N. Medication Administered: NITROSTAT [SL], Dose: 0.4 mg Tablets SL. Medication Ordered: Nitrostat SL 0.4 mg (NOW, x3 PRN Chest Pain). Given 03:51 09/08/2016 Linda Franz R.N. Medication Administered: NITROSTAT [SL], Dose: 0.4 mg Tablets SL. Medication Ordered: Nitrostat SL 0.4 mg (NOW, x3 PRN Chest Pain). Given 04:05 09/08/2016 Linda Franz R.N. Medication Administered: MORPHINE [IVP], Dose: 2 mg IVP over 2 minute(s), Site: #1 left AC. Medication Ordered: Morphine IV 2 mg (HIGH ALERT MEDICATION, NOW).
--- NOTE | 2016-09-08 07:48 | ED MAR SUMMARY ---
..... Medication Administration Record [facility] [address] [place] [address] Patient: VIRGIL BROCK Visit ID: [id number] 50y, M Weight: 136.0 kg Height/Length: 69 in BMI: 44.3 ALLERGIES: None Given 03:38 09/08/2016 Linda Franz R.N. Medication Administered: ASPIRIN [PO], Dose: 325 mg Tablets PO. Medication Ordered: Aspirin PO 325 mg (NOW). Given 03:39 09/08/2016 Linda Franz R.N. Medication Administered: NITROSTAT [SL], Dose: 0.4 mg Tablets SL. Medication Ordered: Nitrostat SL 0.4 mg (NOW, x3 PRN Chest Pain). Given 03:45 09/08/2016 Linda Franz R.N. Medication Administered: NITROSTAT [SL], Dose: 0.4 mg Tablets SL. Medication Ordered: Nitrostat SL 0.4 mg (NOW, x3 PRN Chest Pain). Given 03:51 09/08/2016 Linda Franz R.N. Medication Administered: NITROSTAT [SL], Dose: 0.4 mg Tablets SL. Medication Ordered: Nitrostat SL 0.4 mg (NOW, x3 PRN Chest Pain). Given 04:05 09/08/2016 Linda Franz R.N. Medication Administered: MORPHINE [IVP], Dose: 2 mg IVP over 2 minute(s), Site: #1 left AC. Medication Ordered: Morphine IV 2 mg (HIGH ALERT MEDICATION, NOW).
--- NOTE | 2016-09-08 07:48 | ED DISCHARGE INSTRUCTIONS ---
Patient: VIRGIL BROCK General Instructions [facility] VisitID: [id number] [address] [place] [address] 50y, M Registration Date/Time: 09/08/2016 Chest pain. Congestive heart failure. (Electronically signed by Bulmaro Chavez MD 09/08/2016 7:48)
[2016-09-08 09:53] VITALS: BP 121/56
[2016-09-08 14:35] VITALS: BP 137/80
--- NOTE | 2016-09-08 16:59 | Provider's Discharge Care Plan ---
Problem, Goal, Plan Problem List 1. COPD (chronic obstructive pulmonary disease) Goals: Improve function, Improve nutrition status, Therapeutic intervention Instructions: Follow up as directed, Stop smoking 2. Acute CHF (congestive heart failure) Goals: Improved health/wellness, Increase independence, Therapeutic intervention Instructions: Follow up as directed, Increase activity level, Stop smoking 3. Hypertension Goals: Improve disease control, Prevent disease progress Instructions: Follow up as directed, Stop smoking 4. Nicotine dependence Goals: Improve function, Therapeutic intervention Instructions: Follow up as directed, Stop smoking
[2016-09-08] MEDS ORDERED: LASIX20 MG PO (17:01)
[2016-09-08] MEDS ORDERED: PREDNISONE20 MG PO (17:01)
== END 2016-09-08 18:30 | disposition home or self-care (01) ==
LOC: ED SRH 03:13 → ACUTE2 SRH 04:13 → TRANS SRH 04:13 → ACUTE2 SRH 05:26
PROVIDERS: ADMIT Internal Medicine
DX: I11.0 Hypertensive heart disease with heart failure (principal); I50.9 Heart failure, unspecified; T50.1X6A Underdosing of loop [high-ceiling] diuretics, initial encounter; Z91.120 Patient's intentional underdosing of medication regimen due to financial hardship; J44.1 Chronic obstructive pulmonary disease with (acute) exacerbation; F17.210 Nicotine dependence, cigarettes, uncomplicated; G40.909 Epilepsy, unspecified, not intractable, without status epilepticus; M06.9 Rheumatoid arthritis, unspecified; E66.9 Obesity, unspecified; Z68.41 Body mass index [BMI] 40.0-44.9, adult
CPT/HCPCS: 29230; 29247; 29263; 90004; 90100; 90616; 91320; 91556; 92235; 92530; 92610; 94001; 94060; 95059